=== PATIENT | male | born 1950 | race Caucasian/White ===

== ENCOUNTER 2016-11-08 09:56 | Outpatient (CLI) | payer MEDICARE, OTHER | END 2016-11-08 09:57 | disposition home or self-care (01) | DX: S92.512D Displaced fracture of proximal phalanx of left lesser toe(s), subsequent encounter for fracture with routine healing (principal); X58.XXXD Exposure to other specified factors, subsequent encounter ==

== ENCOUNTER 2016-12-14 15:22 | Outpatient (CLI) | payer MEDICARE, OTHER | END 2016-12-14 15:23 | disposition home or self-care (01) | DX: S83.222A Peripheral tear of medial meniscus, current injury, left knee, initial encounter (principal); M94.8X6 Other specified disorders of cartilage, lower leg; M25.462 Effusion, left knee; M65.9 Synovitis and tenosynovitis, unspecified ==

== ENCOUNTER 2016-12-23 10:51 | Outpatient (CLI) | payer MEDICARE, OTHER | END 2016-12-23 10:52 | disposition home or self-care (01) | DX: S92.515D Nondisplaced fracture of proximal phalanx of left lesser toe(s), subsequent encounter for fracture with routine healing (principal) ==

== ENCOUNTER 2016-12-25 08:00 | Outpatient (CLI) | payer MEDICARE, OTHER | END 2016-12-25 23:59 | DX: M25.50 Pain in unspecified joint (principal) ==

== ENCOUNTER 2017-01-21 10:26 | Outpatient (CLI) | payer MEDICARE, OTHER | END 2017-01-21 10:27 | disposition home or self-care (01) | DX: S92.512D Displaced fracture of proximal phalanx of left lesser toe(s), subsequent encounter for fracture with routine healing (principal) ==

== ENCOUNTER 2017-09-24 12:11 | Day surgery (SDC) | payer MEDICARE, OTHER ==
[2017-09-24] MEDS ORDERED: LACTATED RINGERS 1,000 ML IV ONE (12:22)
[2017-09-24] MEDS ORDERED: fentaNYL 100 MCG/2 ML VIAL IVP ONE (13:54)
[2017-09-24] MEDS ORDERED: MIDAZOLAM 2 MG/2 ML VIAL IVP ONE (13:54)
[2017-09-24 14:59] VITALS: BP 108/60
== END 2017-09-24 12:12 | disposition home or self-care (01) ==
LOC: SDS 12:11
PROVIDERS: ATTEND Internal Medicine
PROC: 0DBK8ZX Excision of Ascending Colon, Via Natural or Artificial Opening Endoscopic, Diagnostic (ICD-10-PCS; principal; 2017-09-24 13:30)
DX: D12.2 Benign neoplasm of ascending colon (principal); K64.8 Other hemorrhoids; E78.5 Hyperlipidemia, unspecified; I10 Essential (primary) hypertension
CPT/HCPCS: 45380; 88305; J7120

== ENCOUNTER 2017-10-04 14:50 | Emergency (ER) | payer MEDICARE, OTHER ==
--- NOTE | 2017-10-04 15:09 | ED Physician Documentation ---
PD HPI HEADACHE - Stated complaint Stated Complaint: QUIÑONES - Chief complaint Chief Complaint: General - History obtained from History obtained from: Patient - History of Present Illness Timing - onset: How many weeks ago (2) Timing - onset during: Light activity Timing - duration: Weeks (2) Timing - details: Gradual onset, Still present. No: Waxing and waning (fairly consistent headache without other symptoms.) Location: Back, Right Quality: Aching Associated symptoms: Nausea. 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 No: Possible carbon monoxide ( does use propane for furnace, and also wood stove, but no change in headache when away for a few days and without headache.), Recent illness Similar symptoms before: Has not had sx before Recently seen: Not recently seen Review of Systems Constitutional: denies: Fever, Chills Nose: denies: Rhinorrhea / runny nose, Congestion, Sinus pressure / pain Throat: denies: Sore throat Cardiac: denies: Chest pain / pressure, Palpitations Respiratory: denies: Dyspnea, Cough GI: reports: Nausea. denies: Vomiting, Diarrhea : denies: Dysuria, Frequency Skin: denies: Rash, Lesions Musculoskeletal: denies: Neck pain, Back pain Neurologic: denies: Focal weakness, Numbness, Near syncope PD PAST MEDICAL HISTORY - Past Medical History Cardiovascular: Hypertension Respiratory: None Endocrine/Autoimmune: None GI: None : Benign prostate hypertrophy, Kidney stones HEENT: None Musculoskeletal: Osteoarthritis, Chronic back pain Derm: Other - Past Surgical History Past Surgical History: Yes General: Colonoscopy Ortho: Shoulder arthroplasty HEENT: Tonsil/Adenoidectomy - Present Medications Home Medications: Ambulatory Orders Medication Instructions Recorded Confirmed Simvastatin [Zocor] 20 mg PO QPM 03/07/13 09/24/17 HYDROcod/ACETAM 5/325 [Vicodin 1 tab PO QPM 06/04/15 09/24/17 5/325] Naproxen [Naprosyn] 500 mg PO DAILY 06/04/15 09/24/17 Triamterene/Hydrochlorothiazid 1 tab PO DAILY 06/04/15 09/24/17 [Triamterene-Hctz 37.5-25 mg Tb] Alfuzosin HCl [Alfuzosin HCl ER] 10 mg PO DAILY 09/23/17 09/24/17 Dexamethasone [Decadron] 4 mg PO DAILY #7 tablet 10/04/17 Oxycodone HCl/Acetaminophen 1 each PO Q6H PRN #20 tablet 10/04/17 [Percocet 5-325 mg Tablet] - Allergies Allergies/Adverse Reactions: Allergies Allergy/AdvReac Type Severity Reaction Status Date / Time morphine AdvReac Severe bradycardia Verified 10/04/17 15:02 - Social History Does the pt smoke?: No Smoking Status: Never smoker Does the pt drink ETOH?: Yes Does the pt have substance abuse?: No - Immunizations Immunizations are current?: Yes Immunizations: TDAP >10years/unknown PD ED PE NORMAL - Vitals Vital signs reviewed: Yes - General General: Alert and oriented X 3, Well developed/nourished - HEENT HEENT: PERRL, EOMI (fundi appear normal), Ears normal, Pharynx benign - Neck Neck: Supple, no meningeal sign, No adenopathy - Cardiac Cardiac: RRR, No murmur - Respiratory Respiratory: Clear bilaterally - Derm Derm: Normal color, No rash - Extremities Extremities: No tenderness to palpate, Normal ROM s pain, No edema, No calf tenderness / cord - Neuro Neuro: Alert and oriented X 3, 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, No motor deficit, No sensory deficit, Normal speech Eye Opening: Spontaneous Motor: Obeys Commands Verbal: Oriented GCS Score: 15 - Psych Psych: Normal mood, Normal affect Results - Vitals Vitals: Vital Signs - 24 hr 10/04/17 10/04/17 15:00 17:24 Temperature 36.0 C L 36.7 C Heart Rate 63 51 L Respiratory 20 20 Rate Blood Pressure 133/79 H 126/72 O2 Saturation 98 100 Oxygen O2 Source Room air - Labs Labs: Laboratory Tests 10/04/17 10/04/17 10/04/17 16:22 16:22 16:22 WBC 6.6 RBC 5.13 Hgb 15.2 Hct 45.3 MCV 88.4 MCH 29.7 MCHC 33.6 RDW 12.7 Plt Count 194 MPV 8.4 Neut # 4.4 Lymph # 1.4 L [place] # 0.5 Eos # 0.2 Baso # 0.1 Absolute Nucleated RBC 0.00 Nucleated RBC % 0.0 ESR 2 Sodium 140 Potassium 3.6 Chloride 103 Carbon Dioxide 27 Anion Gap 10.0 BUN 21 H Creatinine 1.1 Estimated GFR (MDRD) 67 L Glucose 95 Calcium 9.8 Total Bilirubin 0.8 AST 25 ALT 19 Alkaline Phosphatase 60 Total Protein 7.8 Albumin 4.6 Globulin 3.2 Albumin/Globulin Ratio 1.4 Lipase 28 - Rads (name of study) head CT Radiology: Prelim report reviewed (no acute process) PD MEDICAL DECISION MAKING - ED course Complexity details: reviewed results (review of some literature shows headache as a side-effect of stopping Plaquenil. I could not find a particular treatment per se, just symptomatic and should remit.), considered differential, d/w patient Departure - Departure Disposition: 01 Home, Self Care Clinical Impression: Headache Qualifiers: Headache type: unspecified Headache chronicity pattern: acute headache Intractability: not intractable Qualified Code(s): R51 - Headache Condition: Stable Record reviewed to determine appropriate education?: Yes Instructions: ED Cephalgia Unspecified Follow-Up: Jarek Haji MD [Primary Care Provider] - Prescriptions: Dexamethasone [Decadron] 4 mg PO DAILY #7 tablet Oxycodone HCl/Acetaminophen [Percocet 5-325 mg Tablet] 1 each PO Q6H PRN #20 tablet PRN Reason: Pain Comments: Headache may be a tension headache or vascular such as migraine. It may be from the stoppage of the Plaquenil as that is associated with headache for some people as you have researched. I could not find a particular treatment per se for that. I presume an anti-inflammatory such as Decadron steroid daily for several days to week should be helpful for muscle tension as well as migraine and presume the withdrawal headache. Add Percocet if needed for pain. Continue your usual medications. Recheck if not improved over the next few days. Discharge Date/Time: 10/04/17 17:24
[2017-10-04] MEDS ORDERED: ACETAMINOPHEN 325 MG TABLET PO STA (15:41)
[2017-10-04] MEDS ORDERED: IBUPROFEN 600 MG TABLET PO STA (15:41)
[2017-10-04 16:29] LABS: BASOPHILS # (AUTO) 0.1 10^3/uL (0.0-0.1); BASOPHILS % (AUTO) 1.3 %; EOSINOPHILS # (AUTO) 0.2 10^3/uL (0.0-0.7); EOSINOPHILS % (AUTO) 2.7 %; HGB - HEMOGLOBIN 15.2 g/dL (14.0-18.0); LYMPHOCYTES # (AUTO) 1.4 10^3/uL (1.5-3.5); LYMPHOCYTES % (AUTO) 21.4 %; MEAN CORPUSCULAR HEMOGLOBIN 29.7 pg (27.0-31.0); MEAN CORPUSCULAR HGB CONC 33.6 g/dL (32.0-36.0); MEAN CORPUSCULAR VOLUME 88.4 fL (80.0-94.0); MEAN PLATELET VOLUME 8.4 fL (7.4-11.4); MONOCYTES # (AUTO) 0.5 10^3/uL (0.0-1.0); MONOCYTES % (AUTO) 7.5 %; NEUTROPHILS # (AUTO) 4.4 10^3/uL (1.5-6.6); NEUTROPHILS % (AUTO) 67.1 %; PLT - PLATELET COUNT 194 10^3/uL (130-450); RED BLOOD COUNT 5.13 10^6/uL (4.70-6.10); RED CELL DISTRIBUTION WIDTH 12.7 % (12.0-15.0); WHITE BLOOD COUNT 6.6 x10^3/uL (4.8-10.8)
--- NOTE | 2017-10-04 16:41 | CT Preliminary Report ---
Exam: CT HEAD W/O IMPRESSION: Normal head CT. [facility] SITE ID: [id number]
--- NOTE | 2017-10-04 16:41 | CT Report ---
EXAM: CT HEAD EXAM DATE: 10/04/2017 03:58 PM. CLINICAL HISTORY: Headache right side/frontal for 2 weeks. COMPARISON: None. TECHNIQUE: Multiaxial CT images were obtained from the foramen magnum to the vertex. Reformats: Coron al. IV contrast: None. In accordance with CT protocol optimization, one or more of the following dose reduction techniques w ere utilized for this exam: automated exposure control, adjustment of mA and/or KV based on patient s ize, or use of iterative reconstructive technique. FINDINGS: Parenchyma: No intraparenchymal hemorrhage. No evidence of mass, midline shift, or CT findings of inf arction. Gee-white differentiation is distinct. Extraaxial Spaces: Normal for age. No subdural or epidural collections identified. Ventricles: Normal in size and position. Sinuses and Orbits: Imaged paranasal sinuses, orbits, and mastoids show no significant abnormality. Bones: No evidence of fracture or calvarial defect. Other: None. IMPRESSION: Normal head CT. [facility] Referring Provider Line: [phone] SITE ID: [id number]
[2017-10-04 16:42] LABS: ALBUMIN 4.6 g/dL (3.2-5.5); ALBUMIN/GLOBULIN RATIO 1.4 (1.0-2.2); BILIRUBIN,TOTAL 0.8 mg/dL (0.2-1.0); CALCIUM 9.8 mg/dL (8.5-10.3); CREATININE 1.1 mg/dL (0.6-1.2); TOTAL PROTEIN 7.8 g/dL (6.7-8.2)
[2017-10-04] MEDS ORDERED: DEXAMETHASONE 10 MG/ML VIAL PO STA (17:12)
[2017-10-04 17:24] VITALS: BP 126/72
== END 2017-10-04 17:24 | disposition home or self-care (01) ==
LOC: ED 14:50
DX: R51 Headache (principal); M06.9 Rheumatoid arthritis, unspecified; I10 Essential (primary) hypertension; N40.0 Benign prostatic hyperplasia without lower urinary tract symptoms; M19.90 Unspecified osteoarthritis, unspecified site; Z87.442 Personal history of urinary calculi
CPT/HCPCS: 36415; 70450; 80053; 83690; 85025; 85651; 99283; A9270

== ENCOUNTER 2017-10-21 14:28 | Outpatient (CLI) | payer MEDICARE, OTHER ==
[2017-10-21] MEDS ORDERED: IOPAMIDOL-300 100 ML VIAL ONE (14:51)
--- NOTE | 2017-10-21 21:00 | CT Report ---
DATE OF SERVICE: 10/21/2017 CT BRAIN WITHOUT CONTRAST: 10/21/2017 CLINICAL INDICATION: Headache. COMPARISON: 10/04/[address] images of the brain were obtained without contrast. In accordance with CT protocol optimization, one or more of the following dose reduction techniques were utilized for this exam: Automated exposure control, adjustment of mA and/or KV based on patient size, or use of iterative reconstructive technique. The ventricles and sulci are normal in size, shape and configuration. The basilar cisterns are patent. There is no evidence of hemorrhage, mass effect, or midline shift. The visualized orbital contents and paranasal sinuses are unremarkable. The mastoid air cells are normally pneumatized. The middle ears are unremarkable. IMPRESSION: Normal CT of the brain without contrast. No significant interval change. TD: 10/21/2017 22:00
== END 2017-10-21 14:29 | disposition home or self-care (01) ==
LOC: DI 14:28
PROVIDERS: ATTEND Nurse Practitioner Family
DX: R51 Headache (principal)
CPT/HCPCS: 70450

== ENCOUNTER 2018-08-27 11:58 | Outpatient (CLI) | payer MEDICARE, OTHER ==
--- NOTE | 2018-08-28 15:30 | XRAY Report ---
Reason: RT HIP PAIN Procedure Date: 08/27/2018 Accession Number: [id number] / [id number] Procedure: XR - Hips 3-4V BILAT CPT Code: FULL RESULT: EXAM: BILATERAL HIP RADIOGRAPHY EXAM DATE: 08/27/2018 12:29 PM. CLINICAL HISTORY: Right hip pain. COMPARISON: None. TECHNIQUE: 2 views. FINDINGS: Bones: Normal. No fractures or bone lesion. Joints: Normal. No dislocation. The hip joint space is mildly narrowed on the left and moderately narrowed on the right. Soft Tissues: There is a 2.2 x 3.3 cm well-demarcated oval hyperdense mass which projects over the right hemisacrum. It is unclear whether this represents an intraosseous or extraosseous finding. 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 Hyperdense mass projecting over the right hemisacrum. Recommend CT pelvis to clarify. [facility]
== END 2018-08-27 11:59 | disposition home or self-care (01) ==
LOC: DI 11:58
PROVIDERS: ATTEND Nurse Practitioner Family
DX: M16.0 Bilateral primary osteoarthritis of hip (principal)
CPT/HCPCS: 73522

== ENCOUNTER 2018-09-01 08:06 | Outpatient (CLI) | payer MEDICARE, OTHER ==
--- NOTE | 2018-09-01 14:17 | CT Report ---
Reason: ABNORMAL FINDINGS ON DIAGNOSTIC IMAGING OF LIMBS Procedure Date: 09/01/2018 Accession Number: [id number] / [id number] Procedure: CT - Abdomen/Pelvis W/O CPT Code: FULL RESULT: EXAM: CT ABDOMEN AND PELVIS (CT KUB) EXAM DATE: 09/01/2018 08:38 AM. CLINICAL HISTORY: Abnormal findings on diagnostic imaging of limbs. COMPARISONS: None. TECHNIQUE: Routine axial helical CT imaging was performed through the abdomen and pelvis without IV contrast. Reconstructions: Coronal and sagittal. In accordance with CT protocol optimization, one or more of the following dose reduction techniques were utilized for this exam: automated exposure control, adjustment of mA and/or KV based on patient size, or use of iterative reconstructive technique. FINDINGS: Lung Bases: Partially imaged is a left hilar calcification measuring at least 2.3 x 1.0 cm. Right Kidney/Ureter: 1.1 cm right upper pole renal hypodensity, incompletely characterized. No calculi or hydronephrosis. Left Kidney/Ureter: No stones, hydronephrosis, or hydroureter. No perinephric fat stranding. Other Solid Organs: Noncontrast images of the solid organs are grossly unremarkable with the exception of evidence of prior granulomatous disease affecting the spleen. Gallbladder/Bile Ducts: Cholelithiasis. Peritoneal Cavity: No free fluid, free air or jacki adenopathy. Bowel is grossly unremarkable. Pelvic Organs: No bladder stones or wall thickening. Noncontrast images of the visualized pelvic organs are unremarkable. Vasculature: Unremarkable. Other: The previously seen 2.8 x 1.9 cm well-circumscribed hypodense mass is defined as intraosseous within the right iliac wing with benign features, large bone island. IMPRESSION: Benign bone island. Indeterminant hypodense right renal hypodensity. Recommend retroperitoneal ultrasound to determine whether this represents a cyst. [facility]
== END 2018-09-01 08:07 | disposition home or self-care (01) ==
LOC: DI 08:06
PROVIDERS: ATTEND Nurse Practitioner Family
DX: R93.6 Abnormal findings on diagnostic imaging of limbs (principal); N28.89 Other specified disorders of kidney and ureter
CPT/HCPCS: 74176

== ENCOUNTER 2018-09-23 12:58 | Outpatient (CLI) | payer MEDICARE, OTHER ==
--- NOTE | 2018-09-23 14:40 | Ultrasound Report ---
Reason: OTHER SPECIFIED DISORDERS OF KIDNEY AND URETER Procedure Date: 09/23/2018 Accession Number: [id number] / [id number] Procedure: US - Retroperitoneal CPT Code: FULL RESULT: EXAM: RENAL ULTRASOUND. EXAM DATE: 09/23/2018 01:13 PM. CLINICAL HISTORY: Other specified disorders of kidney and ureter. COMPARISON: None. TECHNIQUE: Real-time scanning was performed with static images obtained. FINDINGS: Right Kidney: 11.1 cm. The previously seen upper pole renal hypodensity is characterized as a cyst with thin septations and no demonstrable soft tissue component or blood flow by color Doppler which measures 0.9 x 0.9 x 0.9 cm. No hydronephrosis or renal calculi are seen. Left Kidney: 10.2 cm. Normal echotexture with no stones, contour-deforming masses, or hydronephrosis. Bladder: Bilateral jets seen. The prevoid bladder volume was 243 cc. The postvoid bladder volume was 38 cc. Other: None. IMPRESSION: Septated subcentimeter renal cyst without ultrasound evidence of blood flow or soft tissue component. While this is not characterized as a simple cyst, ultrasound appearance favors benignity. No further imaging follow-up is required at this time. [facility]
== END 2018-09-23 12:59 | disposition home or self-care (01) ==
LOC: DI 12:58
PROVIDERS: ATTEND Nurse Practitioner Family
DX: N28.1 Cyst of kidney, acquired (principal)
CPT/HCPCS: 76770

== ENCOUNTER 2019-06-03 10:40 | Outpatient (CLI) | payer MEDICARE, OTHER ==
--- NOTE | 2019-06-06 00:57 | XRAY Report ---
Reason: PAIN OF LEFT THIGH Procedure Date: 06/03/2019 Accession Number: [id number] / [id number] Procedure: XR - Lumbar Spine 2 View CPT Code: FULL RESULT: EXAM: LUMBOSACRAL SPINE RADIOGRAPHY EXAM DATE: 06/03/2019 10:58 AM. CLINICAL HISTORY: Pain of left thigh. COMPARISONS: ABDOMEN/PELVIS W/O 09/01/2018 8:25 AM. TECHNIQUE: 2 views. FINDINGS: Alignment: Mild levoscoliosis. No spondylolisthesis. Bones: Five [id number] lumbar vertebral bodies are present. No traumatic or destructive bone abnormality. Sclerotic bone island in the posterior right medial iliac bone. Disks: Advanced degenerative disk disease at L4-L5 and L5-S1. Sacroiliac Joints: Unremarkable. Soft Tissues: Normal. The visualized bowel gas pattern is normal. IMPRESSION: Advanced degenerative disk disease at L4-L5 and L5-S1. [facility]
== END 2019-06-03 10:41 | disposition home or self-care (01) ==
LOC: DI 10:40
PROVIDERS: ATTEND Nurse Practitioner Family
DX: M51.36 Other intervertebral disc degeneration, lumbar region (principal); M51.37 Other intervertebral disc degeneration, lumbosacral region
CPT/HCPCS: 72100

== ENCOUNTER 2019-07-06 12:10 | Outpatient (CLI) | payer MEDICARE, OTHER | END 2019-07-06 12:11 | disposition home or self-care (01) | LOC: DI 12:10 | PROVIDERS: ATTEND Orthopaedic Surgery | DX: Z53.9 Procedure and treatment not carried out, unspecified reason (principal) ==

== ENCOUNTER 2020-09-27 18:14 | Emergency (ER) | payer MEDICARE, OTHER ==
[2020-09-27 19:55] LABS: BILIRUBIN,URINE NEGATIVE (NEGATIVE); GLUCOSE, URINE (UA) NEGATIVE (NEGATIVE); KETONES,URINE (UA) NEGATIVE (NEGATIVE); LEUKOCYTE ESTERASE, URINE NEGATIVE (NEGATIVE); NITRITE,URINE NEGATIVE (NEGATIVE); OCCULT BLOOD,URINE TRACE-INTA (NEGATIVE); PH,URINE 5.5 PH (5.0-7.5); PROTEIN,URINE NEGATIVE (NEGATIVE); UROBILINOGEN,URINE 0.2 (NORMAL) E.U./dL (NORMAL)
[2020-09-27 19:56] LABS: BASOPHILS # (AUTO) 0.1 10^3/uL (0.0-0.1); EOSINOPHILS # (AUTO) 0.2 10^3/uL (0.0-0.7); EOSINOPHILS % (AUTO) 2.9 %; HCT - HEMATOCRIT 42.4 % (42.0-52.0); HGB - HEMOGLOBIN 14.3 g/dL (14.0-18.0); LYMPHOCYTES # (AUTO) 1.4 10^3/uL (1.5-3.5); LYMPHOCYTES % (AUTO) 23.5 %; MEAN CORPUSCULAR HGB CONC 33.7 g/dL (32.0-36.0); MEAN CORPUSCULAR VOLUME 88.9 fL (80.0-94.0); MONOCYTES # (AUTO) 0.4 10^3/uL (0.0-1.0); MONOCYTES % (AUTO) 6.4 %; NEUTROPHILS # (AUTO) 4.1 10^3/uL (1.5-6.6); PLT - PLATELET COUNT 209 10^3/uL (130-450); RED BLOOD COUNT 4.77 10^6/uL (4.70-6.10); RED CELL DISTRIBUTION WIDTH 12.1 % (12.0-15.0); WHITE BLOOD COUNT 6.1 x10^3/uL (4.8-10.8)
[2020-09-27 20:03] LABS: CLARITY,URINE CLEAR (CLEAR)
[2020-09-27 20:10] LABS: ALBUMIN 4.3 g/dL (3.2-5.5); ALBUMIN/GLOBULIN RATIO 1.4 (1.0-2.2); CALCIUM 9.4 mg/dL (8.5-10.3); CREATININE 1.1 mg/dL (0.6-1.2); POTASSIUM 3.9 mmol/L (3.5-5.0); TOTAL PROTEIN 7.4 g/dL (6.7-8.2)
[2020-09-27] MEDS ORDERED: KETOROLAC 60 MG/2 ML VIAL IM STA (20:30)
--- NOTE | 2020-09-27 21:18 | ED Physician Documentation ---
History of Present Illness - Stated complaint Stated Complaint: RIGHT SIDED PX - Chief complaint Chief Complaint: Abd Pain - History obtained from History obtained from: Patient - Additonal information Additional information: 69-year-old male presents the emergency department for evaluation of acute right low back pain. He reports that yesterday evening he was working on his vehicle. For prolonged period of time he was laying in an uncomfortable position over a tub. Since then he has had persistent pain in the low back. He has taken Vicodin at home with moderate relief of pain but over the last 24 hours it is worsened. No history of previous back surgery. No history of cancer IVDA. No saddle anesthesia. No bowel or bladder incontinence. Review of Systems Constitutional: reports: Reviewed and negative Eyes: reports: Reviewed and negative Ears: reports: Reviewed and negative Nose: reports: Reviewed and negative Throat: reports: Reviewed and negative Cardiac: reports: Reviewed and negative Respiratory: reports: Reviewed and negative GI: reports: Reviewed and negative : reports: Reviewed and negative Skin: reports: Reviewed and negative Musculoskeletal: reports: Back pain Neurologic: reports: Reviewed and negative PD PAST MEDICAL HISTORY - Past Medical History Past Medical History: Yes Cardiovascular: Hypertension Respiratory: None Endocrine/Autoimmune: None GI: None : Benign prostate hypertrophy, Kidney stones HEENT: None Musculoskeletal: Osteoarthritis, Chronic back pain Derm: Other - Past Surgical History Past Surgical History: Yes General: Colonoscopy Ortho: Shoulder arthroplasty HEENT: Tonsil/Adenoidectomy - Present Medications Home Medications: Ambulatory Orders Medication Instructions Recorded Confirmed Simvastatin [Zocor] 20 mg PO QPM 03/07/13 09/24/17 HYDROcod/ACETAM 5/325 [Vicodin 1 tab PO QPM 06/04/15 09/24/17 5/325] Naproxen [Naprosyn] 500 mg PO DAILY 06/04/15 09/24/17 Triamterene/Hydrochlorothiazid 1 tab PO DAILY 06/04/15 09/24/17 [Triamterene-Hctz 37.5-25 mg Tb] Alfuzosin HCl [Alfuzosin HCl ER] 10 mg PO DAILY 09/23/17 09/24/17 Oxycodone HCl/Acetaminophen 1 each PO Q6H PRN #20 tablet 10/04/17 [Percocet 5-325 mg Tablet] dexAMETHasone [Decadron] 4 mg PO DAILY #7 tablet 10/04/17 HYDROcodone/ACET 10/325 [[place] 10 1 each PO Q6H PRN #5 tablet 09/27/20 mg/325 mg] Methocarbamol [Robaxin-750] 750 mg PO BID #20 tablet 09/27/20 - Allergies Allergies/Adverse Reactions: Allergies Allergy/AdvReac Type Severity Reaction Status Date / Time morphine AdvReac Severe bradycardia Verified 09/27/20 18:38 - Social History Does the pt smoke?: No Smoking Status: Never smoker Does the pt drink ETOH?: Yes Does the pt have substance abuse?: No - Immunizations Immunizations are current?: Yes Immunizations: TDAP >10years/unknown - POLST Patient has POLST: No PD ED PE EXPANDED - General General: Alert, No acute distress, Well developed/nourished - Neck Neck: Supple w/out meningeal sx, No tenderness. No: Adenopathy - Cardiac Cardiac: Regular Rate, Regular Rhythm, Radial strong equal, Pedal strong equal - Respiratory Respiratory: Clear to ausultation ludy. No: Distress - Back Back: Soft tissue tenderness (right lower paraspinous tenderness. mild spasm appreciated. no midline tenderness. motor strength 5/5 BLW. no parathesias). No: Vertebral tenderness, CVA TTP right, CVA TTP left - Neuro Neuro: Alert and Oriented X 3, CNII-XII intact. No: Normal gait (mildly antalgic) - GCS Eye Opening: Spontaneous Motor: Obeys Commands Verbal: Oriented Total: 15 Results - Vitals Vitals: Vital Signs - 24 hr 09/27/20 18:27 Temperature 36.4 C L Heart Rate 55 L Respiratory 17 Rate Blood Pressure 168/83 H O2 Saturation 99 Oxygen O2 Source Room air - Labs Labs: Laboratory Tests 09/27/20 09/27/20 09/27/20 19:21 19:50 19:50 WBC 6.1 RBC 4.77 Hgb 14.3 Hct 42.4 MCV 88.9 MCH 30.0 MCHC 33.7 RDW 12.1 Plt Count 209 MPV 10.0 Neut # (Auto) 4.1 Lymph # (Auto) 1.4 L [place] # (Auto) 0.4 Eos # (Auto) 0.2 Baso # (Auto) 0.1 Absolute Nucleated RBC 0.00 Nucleated RBC % 0.0 Sodium 141 Potassium 3.9 Chloride 105 Carbon Dioxide 26 Anion Gap 10.0 BUN 18 Creatinine 1.1 Estimated GFR (MDRD) 67 L Glucose 122 H Calcium 9.4 Total Bilirubin 1.0 AST 24 ALT 19 Alkaline Phosphatase 66 Total Protein 7.4 Albumin 4.3 Globulin 3.1 Albumin/Globulin Ratio 1.4 Lipase 27 Urine Color YELLOW Urine Clarity CLEAR Urine pH 5.5 Ur Specific [place] >=1.030 H Urine Protein NEGATIVE Urine Glucose (UA) NEGATIVE Urine Ketones NEGATIVE Urine Occult Blood TRACE-INTA Urine Nitrite NEGATIVE Urine Bilirubin NEGATIVE Urine Urobilinogen 0.2 (NORMAL) Ur Leukocyte Esterase NEGATIVE Ur Microscopic Review NOT INDICATED Urine Culture Comments NOT INDICATED PD MEDICAL DECISION MAKING - ED course Complexity details: reviewed results, re-evaluated patient, considered differ ential, d/w patient ED course: 69-year-old male presents emergency department for evaluation of acute right low back pain sustained yesterday when he was working on his vehicle and laid in a prolonged period of time over a small hump where the buuteeq box was. He has palpable tenderness in the paraspinous region with some mild spasm appreciated. He was given Toradol here in the emergency department as he drove here. He had moderate relief of pain. He does have diclofenac at home for analgesia as well as a limited prescription of hydrocodone. I will recommend that he continue the diclofenac and I will also write a prescription for a small amount of methocarbamol. He has no saddle anesthesia or back pain red flags and the exam is otherwisereassuring return precautions discussed Departure - Departure Disposition: 01 Home, Self Care Clinical Impression: Right low back pain Qualifiers: Chronicity: acute Sciatica presence: without sciatica Qualified Code(s): M54.5 - Low back pain Condition: Stable Record reviewed to determine appropriate education?: Yes Instructions: ED Contusion Back Follow-Up: Jarek Haji MD [Primary Care Provider] - Prescriptions: HYDROcodone/ACET 10/325 [[place] 10 mg/325 mg] 1 each PO Q6H PRN #5 tablet PRN Reason: Pain Methocarbamol [Robaxin-750] 750 mg PO BID #20 tablet Comments: Will please continue to take the diclofenac at home. I would also recommend that you apply ice to the low back in the area where it is painful. I have written a prescription for a limited amount of methocarbamol as well as few additional doses of hydrocodone. If at any point you are having worsening pain numbness or tingling between your legs or inability to control your bowel or bladder please return to the ER
[2020-09-27 21:19] VITALS: BP 156/81
--- OUTSIDE RECORDS SUMMARY | 2020-10-04 00:53 | EXTERNAL MEDICAL SUMMARY RPT | Continuity of Care Document ---
:1950 Demographics Phone Unavailable Preferred Language Unknown Marital Status Unknown Judaism Affiliation Unknown Race Unknown Ethnic Group Unknown Author Organization [place] Address [address] [phone] Phone Care Team Providers Name Role Phone Haji Unavailable Unavailable Problems date description facility 2020-09-27 18:14 ESSENTIAL (PRIMARY) HYPERTENSION [facility] 2020-09-27 18:14 LOW BACK PAIN [facility] 2020-09-27 18:14 MUSCLE SPASM OF BACK [facility] [place] 2020-09-27 18:14 OVEREXERTION FROM PROLONGED STATIC [facility] OR [facility] 2020-09-27 18:14 ACTIVITY, OTHER SPECIFIED [facility] Allergies date description facility ADHESIVE \T\ TAPE [facility] CARVEDILOL [facility] NO KNOWN ENVIRONMENTAL ALLERGIES [facility] UNCODED NONSCREENABLE ALLERGEN [facility] PROCHLORPERAZINE [facility] CODEINE [facility] IBUPROFEN [facility] NAPROXEN [facility] PROMETHAZINE [facility] NO KNOWN ALLERGIES [facility] morphine [facility] Results Social History date description facility [id number]
== END 2020-09-27 21:31 | disposition home or self-care (01) ==
LOC: ED 18:14
DX: M54.5 Low back pain (principal); M62.830 Muscle spasm of back; X50.1XXA Overexertion from prolonged static or awkward postures, initial encounter; Y93.89 Activity, other specified; I10 Essential (primary) hypertension
CPT/HCPCS: 36415; 80053; 81001; 81003; 83690; 85025; 87086; 96372; 99284

== ENCOUNTER 2021-04-24 10:12 | Outpatient (CLI) | payer MEDICARE, OTHER ==
--- NOTE | 2021-04-24 14:57 | XRAY Report ---
PROCEDURE: Foot 3 View LT INDICATIONS: RECENT PX HIP JOINT, LEFT W/CHANGE IN SHAPE TECHNIQUE: 3 views of the foot were acquired. COMPARISON: 11/24/2016, 06/11/2016, 09/04/2015 FINDINGS: Bones: No fractures or dislocations. The previously seen second toe fracture has healed. No suspicio us bony lesions. A mild hallux valgus deformity is seen, with associated degenerative change of the first metatarsopha langeal joint. Milder degenerative changes are seen elsewhere. Soft tissues: No tibiotalar joint effusion. Achilles tendon appears normal. IMPRESSION: Mild hallux valgus deformity, with associated degenerative change. The previously seen second toe fracture has healed. Reviewed by: Adilson Man MD on 04/24/2021 1:56 PM [facility] Approved by: Adilson Man MD on 04/24/2021 1:56 PM [facility] Station ID: [id number]
== END 2021-04-24 10:13 | disposition home or self-care (01) ==
LOC: DI.S 10:12
PROVIDERS: ATTEND Podiatrist
DX: M20.12 Hallux valgus (acquired), left foot (principal); Z87.81 Personal history of (healed) traumatic fracture

== ENCOUNTER 2022-11-04 08:51 | Outpatient (CLI) | payer MEDICARE, OTHER ==
--- NOTE | 2022-11-04 10:17 | XRAY Report ---
PROCEDURE: Shoulder 2 View RT INDICATIONS: PAIN OF RIGHT SHOULDER JOINT TECHNIQUE: 3 views of the shoulder were acquired. COMPARISON: None. FINDINGS: Bones: There is prior right shoulder arthroplasty. Shoulder alignment is anatomic. No fractures or di slocations. No evidence of hardware loosening or failure. Moderate acromioclavicular joint osteoarth ritic changes are seen. No suspicious bony lesions. Visualized ribs appear intact. Soft tissues: No suspicious soft tissue calcifications. IMPRESSION: Prior right shoulder arthroplasty with anatomic shoulder alignment. No gross hardware lo osening or failure. No acute fracture or dislocation. Moderate right acromioclavicular joint osteoart hritis. Reviewed by: Daniel Hoover MD on 11/04/2022 10:15 AM [facility] Approved by: Daniel Hoover MD on 11/04/2022 10:15 AM PST Station ID: [id number]
== END 2022-11-04 08:52 | disposition home or self-care (01) ==
LOC: DI.S 08:51
PROVIDERS: ATTEND Nurse Practitioner Family
DX: M19.011 Primary osteoarthritis, right shoulder (principal); Z96.611 Presence of right artificial shoulder joint

== ENCOUNTER 2023-01-08 10:10 | Day surgery (SDC) | payer MEDICARE, OTHER ==
[2023-01-08] MEDS ORDERED: LACTATED RINGERS 1,000 ML IV ONE ×2 (10:18→12:53)
--- NOTE | 2023-01-08 12:03 | ANESTHESIA ---
Pre-Anesthesia VS, & Labs - Diagnosis screening - Procedure colonoscopy Vital Signs: Temp Pulse Resp BP Pulse Ox O2 Flow Rate 36.5 C 58 L 16 161/90 H 96 0 01/08/23 10:30 01/08/23 10:30 01/08/23 10:30 01/08/23 10:30 01/08/23 10:30 01/08/23 10:30 Height: 5 ft 10 in Weight (kg): 97 kg Body Mass Index: 30.7 BMI Classification: Obese - NPO >8 hours Home Medications and Allergies Home Medications: Ambulatory Orders Amlodipine Besylate [Norvasc] 1 tab PO DAILY 01/07/23 Diclofenac Sodium 75 mg PO DAILY 01/07/23 Losartan [Cozaar] 1 tab PO DAILY 01/07/23 Simvastatin [Zocor] 20 mg PO QPM 03/07/13 Alfuzosin HCl [Alfuzosin HCl ER] 10 mg PO DAILY 09/23/17 Amlodipine Besylate [Norvasc] 1 tab PO DAILY 01/07/23 Diclofenac Sodium 75 mg PO DAILY 01/07/23 Losartan [Cozaar] 1 tab PO DAILY 01/07/23 Allergies/Adverse Reactions: Allergies Allergy/AdvReac Type Severity Reaction Status Date / Time morphine AdvReac Severe bradycardia Verified 09/27/20 18:38 Anes History & Medical History - Anesthetic History Anesthesia Complications: reports: No previous complications - Medical History Cardiovascular: reports: Hypertension, High cholesterol Pulmonary: reports: Sleep apnea Gastrointestinal: reports: None Urinary: reports: Benign prostate hypertrophy, Kidney stones Musculoskeletal: reports: Osteoarthritis, Chronic back pain Endocrine/Autoimmune: reports: None Skin: reports: Other Smoking Status: Never smoker - Surgical History General: reports: Colonoscopy Eyes Ears Nose Throat (EENT): reports: Tonsil/Adenoidectomy Urologic: reports: Kidney stents, Ureterolithotomy (stones) Orthopedic: reports: Hip replacement, Shoulder arthroplasty Exam General: Alert, Oriented x3 Dental: WNL Mouth Opening: Greater than 4 Fingerbreadths Neck Mobility: Normal Mallampati classification: I Thyromental Distance: greater than 6 cm Respiratory: Lungs clear Cardiovascular: Regular rate, Normal S1, Normal S2 Plan Anesthesia Type: Total IV Consent for Procedure(s) Verified and Reviewed: Yes Code Status: Attempt Resuscitation ASA classification: 2-Mild systemic disease Is this case an emergency?: No
[2023-01-08] MEDS ORDERED: PROPOFOL 500 MG/50 ML 500 MG/50 ML VIAL ONE (12:10)
[2023-01-08] MEDS ORDERED: PROPOFOL 200 MG/20 ML VIAL IVP ONE (12:47)
--- NOTE | 2023-01-08 13:31 | ANESTHESIA POST OP EVALUATION ---
Anesthesia Post Eval - Post Anesthesia Eval Vitals: Last Vital Signs Temp 36.1 C L 01/08/23 13:13 Pulse 63 01/08/23 13:18 Resp 13 01/08/23 13:18 BP 128/94 H 01/08/23 13:18 Pulse Ox 97 01/08/23 13:18 O2 Flow Rate 0 01/08/23 10:30 CV Function Including HR & BP: Stable Pain Control: Satisfactory Nausea & Vomiting: Negative Mental Status: Baseline Respiratory Status: Airway Patent Hydration Status: Satisfactory Anesthesia Complications: None
[2023-01-08 13:38] VITALS: BP 145/88
== END 2023-01-08 10:11 | disposition home or self-care (01) ==
LOC: SDS 10:10
PROVIDERS: ATTEND Surgery
DX: Z12.11 Encounter for screening for malignant neoplasm of colon (principal); K64.8 Other hemorrhoids; D17.79 Benign lipomatous neoplasm of other sites; G47.30 Sleep apnea, unspecified; N40.0 Benign prostatic hyperplasia without lower urinary tract symptoms; E66.9 Obesity, unspecified; Z86.010 Personal history of colon polyps; Z68.30 Body mass index [BMI] 30.0-30.9, adult
CPT/HCPCS: G0105; J7120

== ENCOUNTER 2023-05-06 09:19 | Outpatient (CLI) | payer MEDICARE, OTHER ==
[2023-05-06 15:19] LABS: BASOPHILS # (AUTO) 0.1 10^3/uL (0.0-0.1); BASOPHILS % (AUTO) 0.9 %; EOSINOPHILS # (AUTO) 0.3 10^3/uL (0.0-0.7); EOSINOPHILS % (AUTO) 5.2 %; HCT - HEMATOCRIT 46.8 % (42.0-52.0); LYMPHOCYTES # (AUTO) 1.7 10^3/uL (1.5-3.5); LYMPHOCYTES % (AUTO) 25.3 %; MEAN CORPUSCULAR HEMOGLOBIN 29.7 pg (27.0-31.0); MEAN CORPUSCULAR HGB CONC 32.1 g/dL (32.0-36.0); MEAN CORPUSCULAR VOLUME 92.7 fL (80.0-94.0); MEAN PLATELET VOLUME 11.1 fL (7.4-11.4); MONOCYTES # (AUTO) 0.5 10^3/uL (0.0-1.0); MONOCYTES % (AUTO) 7.9 %; NEUTROPHILS % (AUTO) 60.4 %; PLT - PLATELET COUNT 225 10^3/uL (130-450); RED BLOOD COUNT 5.05 10^6/uL (4.70-6.10); RED CELL DISTRIBUTION WIDTH 12.6 % (12.0-15.0); WHITE BLOOD COUNT 6.6 x10^3/uL (4.8-10.8)
[2023-05-06 15:46] LABS: ALBUMIN 4.4 g/dL (3.2-5.5); ALBUMIN/GLOBULIN RATIO 1.6 (1.0-2.2); ALKALINE PHOSPHATASE 63 IU/L (42-121); ALT ALANINE AMINOTRANSFERASE 16 IU/L (10-60); AST ASPARTATE AMINOTRANSFERASE 21 IU/L (10-42); BILIRUBIN,TOTAL 0.7 mg/dL (0.2-1.0); BUN - BLOOD UREA NITROGEN 15 mg/dL (6-20); CALCIUM 9.6 mg/dL (8.5-10.3); CARBON DIOXIDE - CO2 26 mmol/L (21-32); CHLORIDE 109 mmol/L (101-111); CHOL/HDL RATIO 3.4 (<5.0); CHOLESTEROL 182 mg/dL; CREATININE 1.1 mg/dL (0.6-1.3); GFR - MDRD 66 (>89); GLUCOSE 101 mg/dL (74-104); HDL CHOLESTEROL 53 mg/dL; LDL CHOLESTEROL,CALCULATED 102 mg/dL; LDL/HDL RATIO 1.9 (<3.6); POTASSIUM 4.1 mmol/L (3.5-4.5); SODIUM 140 mmol/L (135-145); TOTAL PROTEIN 7.2 g/dL (6.4-8.9); TRIGLYCERIDES 133 mg/dL (48-352); VLDL CHOLESTEROL 27 mg/dL
[2023-05-06 15:49] LABS: THYROID STIMULATING HORMONE 2.01 uIU/mL (0.34-5.60)
== END 2023-05-06 09:20 | disposition home or self-care (01) ==
LOC: LAB.S 09:19
PROVIDERS: ATTEND Nurse Practitioner Family
DX: I10 Essential (primary) hypertension (principal); E78.5 Hyperlipidemia, unspecified; N40.1 Benign prostatic hyperplasia with lower urinary tract symptoms
CPT/HCPCS: 36415; 80053; 80061; 83721; 84153; 84154; 84443; 85025

== ENCOUNTER 2023-09-29 12:19 | Outpatient (CLI) | payer MEDICARE, OTHER | END 2023-09-29 23:59 | disposition critical access hospital (66) | LOC: EMS 12:19 | DX: H54.61 Unqualified visual loss, right eye, normal vision left eye (principal); R20.0 Anesthesia of skin; R47.1 Dysarthria and anarthria; R42 Dizziness and giddiness; I10 Essential (primary) hypertension | CPT/HCPCS: A0425; A0429 ==

== ENCOUNTER 2023-09-29 12:54 | Inpatient (IN) | payer MEDICARE, OTHER ==
--- NOTE | 2023-09-29 13:08 | ED Physician Documentation ---
PD HPI FOCAL NEURO - Stated complaint Stated Complaint: CODE STROKE - History obtained from History obtained from: Patient - Additional information Additional information: 72-year-old gentleman with history of hypertension and hyperlipidemia. He was in his normal state of health eating lunch today when he developed dizziness and weakness and was listing to the side. Then he felt like his right eye was everting. He felt like a "life draining out of him." This lasted for about 10 minutes. He is back to normal now. There is no associated headache or chest pain. Of note he is scheduled for shoulder replacement at [facility] in 2 days. PD PAST MEDICAL HISTORY - Past Medical History Cardiovascular: Hypertension, High cholesterol Respiratory: Sleep apnea Endocrine/Autoimmune: None GI: None : Benign prostate hypertrophy, Kidney stones HEENT: None Musculoskeletal: Osteoarthritis, Chronic back pain Derm: Other - Past Surgical History Past Surgical History: Yes General: Colonoscopy Ortho: Hip replacement, Shoulder arthroplasty HEENT: Tonsil/Adenoidectomy - Present Medications Home Medications: Ambulatory Orders Medication Instructions Recorded Confirmed Simvastatin [Zocor] 20 mg PO QPM 03/07/13 01/07/23 Alfuzosin HCl [Alfuzosin HCl ER] 10 mg PO DAILY 09/23/17 09/29/23 HYDROcodone/ACET 10/325 [[place] 10 1 each PO Q6H PRN #5 tablet 09/27/20 09/29/23 mg/325 mg] Amlodipine Besylate [Norvasc] 1 tab PO DAILY 01/07/23 09/29/23 Diclofenac Sodium 75 mg PO DAILY 01/07/23 09/29/23 Losartan [Cozaar] 1 tab PO DAILY 01/07/23 09/29/23 Ezetimibe/Rosuvastatin Calcium 20 mg PO DAILY 09/29/23 09/29/23 [Rosuvastatin-Ezetimibe 20-10Mg] - Allergies Allergies/Adverse Reactions: Allergies Allergy/AdvReac Type Severity Reaction Status Date / Time morphine AdvReac Severe bradycardia Verified 09/29/23 13:02 - Social History Does the pt smoke?: No Smoking Status: Never smoker Does the pt drink ETOH?: Yes Does the pt have substance abuse?: No - Immunizations Immunizations are current?: Yes Immunizations: TDAP >10years/unknown - POLST Patient has POLST: No PD ED PE NORMAL - Vitals Vital signs reviewed: Yes - General General: Alert and oriented X 3, No acute distress - HEENT HEENT: PERRL, EOMI - Neck Neck: Supple, no meningeal sign, No bony TTP, No bruit - Cardiac Cardiac: RRR, No murmur - Respiratory Respiratory: No respiratory distress, Clear bilaterally - Abdomen Abdomen: Non tender - Derm Derm: Normal color, Warm and dry - Extremities Extremities: No edema, No calf tenderness / cord, Other (Difficulty with motion of the left shoulder but this is not new and related to pain not weakness.) - Neuro Neuro: Alert and oriented X 3, Normal speech Eye Opening: Spontaneous Motor: Obeys Commands Verbal: Oriented GCS Score: 15 NIHSS - Time Time: 13:02 - Level of Consciousness Level of consciousness: (0) Alert, Keenly responsive LOC Questions: (0) Answers both Q's correct LOC Commands: (0) Performs both correctly - Gaze Best Gaze: (0) Normal - Visual Visual: (0) No loss - Facial Palsy Facial Palsy: (0) Normal, symmetrical movement - Motor Arms (both separate) Motor Arm (right): (0) No drift Motor Arm (left): (0) No drift - Motor Legs (both separate) Motor Leg (right): (0) No drift Motor Leg (left): (0) No drift - Limb Ataxia Limb Ataxia: (0) Absent - Sensory Sensory: (0) Normal - Best Language Best Language: (0) No aphasia - Dysarthria Dysarthria: (0) Normal - Extinction and Inattention (formally neg Extinction and inattention: (0) No abnormality - Total Score/Results Total Score/Result: 0 Results - Vitals Vitals: Vital Signs - 24 hr 09/29/23 09/29/23 09/29/23 13:02 13:07 14:07 Temperature 36.8 C 36.8 C Heart Rate 65 65 56 L Respiratory 18 18 14 Rate Blood Pressure 162/105 H 162/105 H 178/100 H O2 Saturation 100 100 98 09/29/23 09/29/23 09/29/23 14:30 15:00 15:30 Temperature 36.8 C Heart Rate 58 L 51 L 53 L Respiratory 15 18 13 Rate Blood Pressure 169/94 H 157/94 H 157/94 H O2 Saturation 98 100 97 09/29/23 09/29/23 16:00 16:30 Temperature Heart Rate 55 L 70 Respiratory 10 L 13 Rate Blood Pressure 168/99 H O2 Saturation 99 99 Oxygen O2 Source Room air - EKG (time done) 1337 EKG releavant findings:: EKG personally interpreted by author of this note. Relevant findings are: Rate: Rate (enter#) (55) Rhythm: NSR (With multiform PVCs) [place]: LAD Intervals: Normal IN QRS: Normal Ischemia: Normal ST segments - Labs Labs: Laboratory Tests 09/29/23 09/29/23 09/29/23 13:05 13:05 13:05 WBC 6.6 RBC 5.15 Hgb 15.2 Hct 46.7 MCV 90.7 MCH 29.5 MCHC 32.5 RDW 12.3 Plt Count 189 MPV 10.2 Neut # (Auto) 4.5 Lymph # (Auto) 1.4 L [place] # (Auto) 0.4 Eos # (Auto) 0.2 Baso # (Auto) 0.1 Absolute Nucleated RBC 0.00 Nucleated RBC % 0.0 PT 11.8 INR 1.1 Sodium 141 Potassium 3.9 Chloride 108 Carbon Dioxide 26 Anion Gap 7.0 BUN 16 Creatinine 1.0 Estimated GFR (MDRD) 74 L Glucose 107 H Calcium 9.6 Magnesium Total Bilirubin 0.9 AST 20 ALT 17 Alkaline Phosphatase 69 Troponin I High Sens Total Protein 7.3 Albumin 4.6 Globulin 2.7 Albumin/Globulin Ratio 1.7 Lipase 34 09/29/23 13:05 WBC RBC Hgb Hct MCV MCH MCHC RDW Plt Count MPV Neut # (Auto) Lymph # (Auto) [place] # (Auto) Eos # (Auto) Baso # (Auto) Absolute Nucleated RBC Nucleated RBC % PT INR Sodium Potassium Chloride Carbon Dioxide Anion Gap BUN Creatinine Estimated GFR (MDRD) Glucose Calcium Magnesium 1.9 Total Bilirubin AST ALT Alkaline Phosphatase Troponin I High Sens 17.6 Total Protein Albumin Globulin Albumin/Globulin Ratio Lipase - Rads (name of study) CT of the head without contrast is unremarkable Relevant Findings:: Final report received, EMP independent interpretation of test CT angiography of the head and neck were negative except for suboptimal evaluation of the origin of the left vertebral. 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 His description is a little different with transient diplopia and more weakness. He was noted to have ectopy prior to arrival. So differential now would also include TIA but also potentially a heart rhythm issue with low flow state. On the monitor here he did have very frequent multifocal PVCs including some R on T PVCs and very short runs of V. tach. CT and CT angiography were negative as were labs including CBC, CMP, magnesium, troponin. I discussed the case by phone given the ectopy with Drs. Bautista in [place] who recommended overnight obs to make sure he was not having more malignant arrhythmias with echocardiogram. Discussed with Dr. Kennedy, our hospitalist at 4:04 PM. Departure - Departure Disposition: ED Place in Observation Clinical Impression: Near syncope, Ventricular ectopy Condition: Stable Discharge Date/Time: 09/29/23 18:20
[2023-09-29 13:16] LABS: BASOPHILS # (AUTO) 0.1 10^3/uL (0.0-0.1); BASOPHILS % (AUTO) 0.8 %; EOSINOPHILS # (AUTO) 0.2 10^3/uL (0.0-0.7); EOSINOPHILS % (AUTO) 3.2 %; HCT - HEMATOCRIT 46.7 % (42.0-52.0); HGB - HEMOGLOBIN 15.2 g/dL (14.0-18.0); LYMPHOCYTES # (AUTO) 1.4 10^3/uL (1.5-3.5); LYMPHOCYTES % (AUTO) 21.1 %; MEAN CORPUSCULAR HEMOGLOBIN 29.5 pg (27.0-31.0); MEAN CORPUSCULAR HGB CONC 32.5 g/dL (32.0-36.0); MEAN CORPUSCULAR VOLUME 90.7 fL (80.0-94.0); MEAN PLATELET VOLUME 10.2 fL (7.4-11.4); MONOCYTES # (AUTO) 0.4 10^3/uL (0.0-1.0); MONOCYTES % (AUTO) 5.9 %; NEUTROPHILS # (AUTO) 4.5 10^3/uL (1.5-6.6); NEUTROPHILS % (AUTO) 68.8 %; PLT - PLATELET COUNT 189 10^3/uL (130-450); RED BLOOD COUNT 5.15 10^6/uL (4.70-6.10); RED CELL DISTRIBUTION WIDTH 12.3 % (12.0-15.0); WHITE BLOOD COUNT 6.6 x10^3/uL (4.8-10.8)
[2023-09-29 13:27] LABS: ALBUMIN 4.6 g/dL (3.2-5.5); ALBUMIN/GLOBULIN RATIO 1.7 (1.0-2.2); BILIRUBIN,TOTAL 0.9 mg/dL (0.2-1.0); CALCIUM 9.6 mg/dL (8.5-10.3); INR 1.1 (0.8-1.2); POTASSIUM 3.9 mmol/L (3.5-4.5); PT - PROTHROMBIN TIME 11.8 secs (9.9-12.6); TOTAL PROTEIN 7.3 g/dL (6.4-8.9)
--- NOTE | 2023-09-29 13:43 | CT Report ---
PROCEDURE: Head W/O Stroke Protocol INDICATIONS: Neuro deficit, acute, stroke suspected TECHNIQUE: Noncontrast 4.5 mm thick angled axial sections acquired from the foramen magnum to the vertex, with c oronal reformats. For radiation dose reduction, the following was used: automated exposure control, adjustment of mA and/or kV according to patient size. COMPARISON: None. FINDINGS: Image quality: Excellent. CSF spaces: Basal cisterns are patent. No extra-axial fluid collections. Ventricles are normal in size and shape. Brain: No midline shift. No intracranial masses or hemorrhage. Gee-white matter interface is norm al. Skull and face: Calvarium and visualized facial bones are intact, without suspicious lesions. Sinuses: Visualized sinuses and mastoids are clear. IMPRESSION: No acute intracranial pathology Findings were discussed with ordering provider on 09/29/2023 at 1:42 PM. This study fulfills neurological imaging criteria for inclusion or exclusion of acute stroke therapie s based on available published neurological imaging guidelines. Reviewed by: Isaac Lentz MD on 09/29/2023 1:42 PM PST Approved by: Isaac Lentz MD on 09/29/2023 1:42 PM PST Station ID: [id number]
--- NOTE | 2023-09-29 14:06 | CT Report ---
PROCEDURE: Angio Head/Neck INDICATIONS: CVA sx TECHNIQUE: PROCEDURE: Angio Head/Neck INDICATIONS: CVA sx TECHNIQUE: After the administration of intravenous contrast, 1 mm thick sections acquired from the aortic arch t hrough the [place] of [place]. 3-dimensional aqyqxaq-ndgusaytr-cgvubjhwzp (MIP) and/or volume renderin g reformats were acquired of the central intracranial vasculature and neck separately. For radiation dose reduction, the following was used: automated exposure control, adjustment of mA and/or kV acco rding to patient size. CONTRAST: Iodinated intravenous contrast COMPARISON: None. FINDINGS: Image quality: Degraded by technical factors, metallic beam hardening artifact. HEAD CT: CSF Spaces: Basal cisterns are patent. No extra-axial fluid collections. Ventricles are normal in size and shape. Brain: The brain is within normal limits for age and scanning technique. Skull and face: Calvarium and visualized facial bones appear intact, without suspicious lesions. Sinuses: Visualized sinuses and mastoids are clear. HEAD CT ANGIOGRAPHY: Anterior circulation: Mild calcific plaque causes mild diffuse stenosis of the cavernous segments of the internal carotid arteries bilaterally. The flow within the paired anterior cerebral arteries is n ormal and symmetric. The flow within the middle cerebral arteries is normal and symmetric. The ante rior communicating artery is seen. No aneurysms are seen. Posterior circulation: Visualized portions of the vertebral arteries demonstrate normal caliber, robson ar. There is a moderate focal stenosis within the mid basilar artery. Flow within the posterior cereb ral arteries is normal and symmetric. No aneurysms are seen. NECK CT ANGIOGRAPHY: Carotid system: The great vessels demonstrate a conventional anatomy as they arise from the aortic a rch. The origins of the common carotid arteries appear patent. The common carotid arteries demonstr ate normal caliber and courses. The bifurcation regions are both widely patent. There is roughly 10% calcific origin stenosis of the bilateral internal carotid artery origins. Posterior circulation: Ri ght vertebral artery origin is patent. Left vertebral artery origin is not well seen secondary to art ifact. Mild multifocal bilateral mid and distal vertebral artery stenoses are present. They join to f orm a normal appearing basilar artery. Soft tissues: Visualized neck soft tissues demonstrate no suspicious abnormalities. Bones: No suspicious bony lesions. Visualized cervical spine appears normally aligned. IMPRESSION: 1. No acute process involving the arterial tree of the head and neck. 2. Bilateral anterior and posterior circulation stenoses. 3. Suboptimal evaluation of the left vertebral artery origin, which could be further assessed with Do ppler or MR angiography, if clinically indicated. The estimate of stenosis included in the report of the imaging study was calculated using the NASCET method Reviewed by: Ary Che MD on 09/29/2023 2:05 PM PST Approved by: Ary Che MD on 09/29/2023 2:05 PM [facility] Station ID: [id number]
[2023-09-29 14:13] LABS: MAGNESIUM 1.9 mg/dL (1.7-2.3)
[2023-09-29 14:20] LABS: TROPONIN I HIGH SENSITIVITY 17.6 ng/L (2.3-19.7)
[2023-09-29] MEDS ORDERED: iohexoL-300 100 ML VIAL IVP ONE (14:33)
[2023-09-29] MEDS ORDERED: SODIUM CHLORIDE FLUSH 0.9% 10 ML SYRINGE IVP PRN (17:04)
--- NOTE | 2023-09-29 17:17 | HISTORY & PHYSICAL EXAMINATION ---
History of Present Illness - Admitted From Admitted From:: Emergency room - History Obtained From History obtained from: Patient - History of Present Illness HPI Comment/Other: Will Mares is a 72-year-old man who presented to the emergency room after a near syncopal episode at home.Patient reports that around noon time he developed weakness and dizziness and he felt like his eyes were going in opposite directions. He reports this lasted for approximately 10 minutes. EMS service was called and by the time they arrived it was over with. He also reports that he had a similar episode several months ago but this episode only lasted for seconds. He reports he is scheduled for a shoulder replacement in 2 days. History - Past Medical History Cardiovascular: reports: Hypertension, High cholesterol Respiratory: reports: Sleep apnea Endocrine/Autoimmune: reports: None GI: reports: None : reports: Benign prostate hypertrophy, Kidney stones HEENT: reports: None Musculoskeletal: reports: Osteoarthritis, Chronic back pain Derm: reports: Other MRSA Hx?: No - Past Surgical History General: reports: Colonoscopy Ortho: reports: Hip replacement, Shoulder arthroplasty HEENT: reports: Tonsil/Adenoidectomy - Family & Social History Living arrangement: At home - POLST Patient has POLST: No Meds/Allgy - Home Medications Home Medications: Ambulatory Orders Medication Instructions Recorded Confirmed Simvastatin [Zocor] 20 mg PO QPM 03/07/13 01/07/23 Alfuzosin HCl [Alfuzosin HCl ER] 10 mg PO DAILY 09/23/17 09/29/23 HYDROcodone/ACET 10/325 [[place] 10 1 each PO Q6H PRN #5 tablet 09/27/20 09/29/23 mg/325 mg] Amlodipine Besylate [Norvasc] 1 tab PO DAILY 01/07/23 09/29/23 Diclofenac Sodium 75 mg PO DAILY 01/07/23 09/29/23 Losartan [Cozaar] 1 tab PO DAILY 01/07/23 09/29/23 Ezetimibe/Rosuvastatin Calcium 20 mg PO DAILY 09/29/23 09/29/23 [Rosuvastatin-Ezetimibe 20-10Mg] - Allergies Allergies/Adverse Reactions: Allergies Allergy/AdvReac Type Severity Reaction Status Date / Time morphine AdvReac Severe bradycardia Verified 09/29/23 13:02 Exam - Vital Signs Vital Signs: Vital Signs x48h Temp Pulse Resp BP Pulse Ox 09/29/23 16:30 70 13 168/99 H 99 09/29/23 16:00 55 L 10 L 99 09/29/23 15:30 53 L 13 157/94 H 97 09/29/23 15:00 51 L 18 157/94 H 100 09/29/23 14:30 36.8 C 58 L 15 169/94 H 98 09/29/23 14:07 56 L 14 178/100 H 98 09/29/23 13:07 36.8 C 65 18 162/105 H 100 09/29/23 13:02 36.8 C 65 18 162/105 H 100 - Physical Exam General Appearance: positive: No acute distress, Mild distress, Moderate distress Eyes Bilateral: positive: Normal inspection, PERRL, No lid inflammation ENT: positive: ENT inspection nml Neck: positive: Nml inspection, Thyroid nml, No JVD, Trachea midline Respiratory: positive: Chest non-tender, No respiratory distress, Breath sounds nml Cardiovascular: positive: Regular rate & rhythm, No murmur Abdomen: positive: Non-tender, No organomegaly, Nml bowel sounds Extremities: positive: Non-tender Neurologic/Psychiatric: positive: Oriented x3, CN's nml (2-12) Conclusion/Plan - Problem List (1) Near syncope Conclusion/Plan: CT angiography of the head and neck revealed no significant pathology.CT scan of the brain also did not reveal any significant pathology Patient will be admitted to observation and placed on telemetry. Plan is to obtain an echocardiogram tomorrow. He will need to be risk stratified for his upcoming shoulder surgery. - Lab Results Fish Bones: 09/29/23 13:05 09/29/23 13:05
[2023-09-29] MEDS: HYDROcod/ACETAM 5/325 MG TABLET PO PRN (21:49)
[2023-09-30] MEDS: SODIUM CHLORIDE FLUSH 0.9% 10 ML SYRINGE IVP SCH ×3 (01:23→17:46)
[2023-09-30] MEDS: HYDROcod/ACETAM 5/325 MG TABLET PO PRN ×2 (03:49→20:15)
[2023-09-30 05:51] LABS: CALCIUM 9.3 mg/dL (8.5-10.3); MAGNESIUM 1.8 mg/dL (1.7-2.3); PHOSPHORUS 3.6 mg/dL (2.5-5.0); POTASSIUM 3.8 mmol/L (3.5-4.5)
[2023-09-30] MEDS: LOSARTAN 50 MG TABLET PO SCH (08:38)
[2023-09-30] MEDS: amLODIPine 5 MG TABLET PO SCH (08:39)
[2023-09-30] MEDS: DICLOFENAC SODIUM DR 75 MG TABLET PO SCH (08:39)
[2023-09-30] MEDS: ALFUZOSIN HCL 10 MG PO SCH (08:55)
[2023-09-30] MEDS: [UNRECOGNIZED DRUG - OTHER] PO SCH (08:55)
--- NOTE | 2023-09-30 16:59 | PROVIDER PROGRESS NOTE ---
Assessment/Plan - Problem List (1) Syncope Assessment/Plan: Etiology is still not clear. However telemetry shows marked bradycardia, HR down to 40. I suspect he had an episode of severe bradycardia at home that lasted for a prolonged time. Awaiting an Echocardiogram to be done. We do have an a/c technician available today but the tech did not get to him on her schedule today. 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 Telem shows HRs down to 40 in sinus rhythm. Plan: Remain on telem Avoid any HR-slowing meds I will check his TSH for Hypothyroidism (3) HTN (hypertension) Assessment/Plan: BP mildly elevated here Plan: Cont his usual home BP meds, I checked them and none seem to be able to cause bradycardia - Current Meds Current Meds: Current Medications Generic Name Dose Route Start Last Admin Trade Name Freq PRN Reason Stop Dose Admin Hydrocodone Bitart/Acetaminophen 2 tab 09/29/23 21:27 09/30/23 03:49 Hydrocod/Acetam 5/325 Mg Tablet PO 2 tab Q6HR PRN Administration Moderate Pain (Level 4-6) Amlodipine Besylate 2.5 mg 09/30/23 09:00 09/30/23 08:39 Amlodipine 5 Mg Tablet PO 2.5 mg DAILY CHELSIE Administration Diclofenac Sodium 75 mg 09/30/23 09:00 09/30/23 08:[address] 75 Mg Tablet PO 75 mg DAILY CHELSIE Administration Losartan Potassium 50 mg 09/30/23 09:00 09/30/23 08:38 Losartan 50 Mg Tablet PO 50 mg DAILY CHELSIE Administration Patient Own Med ( 1 each 09/30/23 09:00 09/30/23 08:55 Alfuzosin Hcl Er 10 PO Not Given Mg) DAILY [facility] Patient Own Med ( 1 each 09/30/23 09:00 09/30/23 08:55 Rosuvastatin- PO Not Given Ezetimibe 20-10mg) DAILY [facility] Sodium Chloride 10 ml 09/30/23 01:00 09/30/23 08:55 Sodium Chloride Flush 0.9% 10 Ml Syringe IVP 10 ml 0100,0900,1700 [facility] Administration - Lab Result Fish Bone Diagrams: 09/29/23 13:05 10/01/23 04:59 - Additional Planning My Orders: My Active Orders 09/30/23 07:56 Echo Transthoracic Complete [ECHO] Routine 09/30/23 07:57 Orthostatic [Vital Signs - Orthostatic] [RC] QSHIFT 09/30/23 16:48 Admit \ Transfer \ Status [RC] .ONCE Subjective - Subjective Patient Reports: Resting Comfortably, No Complaints Objective Vital Signs: Vital Signs - 24 hr 09/29/23 09/29/23 09/29/23 18:30 20:00 21:47 Temperature 36.6 C 36.8 C Heart Rate [ 57 L 52 L 53 L Brachial] Respiratory 20 16 Rate Blood Pressure 169/94 H 162/86 H 158/86 H [Right Brachial artery] O2 Saturation 97 97 09/30/23 09/30/23 09/30/23 01:00 05:30 07:48 Temperature 37.0 C 36.6 C 36.5 C Heart Rate [ 60 53 L 45 L Brachial] Respiratory 16 16 14 Rate Blood Pressure 136/88 H 149/86 H 143/84 H [Right Brachial artery] O2 Saturation 96 96 96 09/30/23 09/30/23 12:04 15:57 Temperature 36.6 C 37.1 C Heart Rate [ 51 L 52 L Brachial] Respiratory 16 18 Rate Blood Pressure 143/84 H 152/83 H [Right Brachial artery] O2 Saturation 94 93 Oxygen O2 Source Room air I&O (Last 24 Hrs): Intake and Output Totals x24h 09/28/23 09/29/23 09/30/23 23:59 23:59 23:59 Intake Total 600 Balance 600 General: Alert, Oriented x3, No acute distress HEENT: EOMI, Mucous membr. moist/pink Neck: Supple, No JVD Neuro: Alert, Non Focal Cardiovascular: Regular rate, No murmurs Respiratory: No respiratory distress, Breath sounds nml Abdomen: Normal bowel sounds, Soft, No tenderness Extremities: No clubbing, No edema, No tenderness/swelling - Results Results: Laboratory Results WBC 6.6 x10^3/uL (4.8-10.8) 09/29/23 13:05 RBC 5.15 10^6/uL (4.70-6.10) 09/29/23 13:05 Hgb 15.2 g/dL (14.0-18.0) 09/29/23 13:05 Hct 46.7 % (42.0-52.0) 09/29/23 13:05 MCV 90.7 fL (80.0-94.0) 09/29/23 13:05 MCH 29.5 pg (27.0-31.0) 09/29/23 13:05 MCHC 32.5 g/dL (32.0-36.0) 09/29/23 13:05 RDW 12.3 % (12.0-15.0) 09/29/23 13:05 Plt Count 189 10^3/uL (130-450) 09/29/23 13:05 MPV 10.2 fL (7.4-11.4) 09/29/23 13:05 Neut # (Auto) 4.5 10^3/uL (1.5-6.6) 09/29/23 13:05 Lymph # (Auto) 1.4 10^3/uL (1.5-3.5) L 09/29/23 13:05 [place] # (Auto) 0.4 10^3/uL (0.0-1.0) 09/29/23 13:05 Eos # (Auto) 0.2 10^3/uL (0.0-0.7) 09/29/23 13:05 Baso # (Auto) 0.1 10^3/uL (0.0-0.1) 09/29/23 13:05 Absolute Nucleated RBC 0.00 x10^3/uL 09/29/23 13:05 Nucleated RBC % 0.0 /100WBC 09/29/23 13:05 PT 11.8 secs (9.9-12.6) 09/29/23 13:05 INR 1.1 (0.8-1.2) 09/29/23 13:05 Sodium 141 mmol/L (135-145) 09/30/23 04:30 Potassium 3.8 mmol/L (3.5-4.5) 09/30/23 04:30 Chloride 108 mmol/L (101-111) 09/30/23 04:30 Carbon Dioxide 27 mmol/L (21-32) 09/30/23 04:30 Anion Gap 6.0 (6-13) 09/30/23 04:30 BUN 17 mg/dL (6-20) 09/30/23 04:30 Creatinine 1.0 mg/dL (0.6-1.3) 09/30/23 04:30 Estimated GFR (MDRD) 74 (>89) L 09/30/23 04:30 Glucose 82 mg/dL (74-104) 09/30/23 04:30 Calcium 9.3 mg/dL (8.5-10.3) 09/30/23 04:30 Phosphorus 3.6 mg/dL (2.5-5.0) 09/30/23 04:30 Magnesium 1.8 mg/dL (1.7-2.3) 09/30/23 04:30 Total Bilirubin 0.9 mg/dL (0.2-1.0) 09/29/23 13:05 AST 20 IU/L (10-42) 09/29/23 13:05 ALT 17 IU/L (10-60) 09/29/23 13:05 Alkaline Phosphatase 69 IU/L (42-121) 09/29/23 13:05 Troponin I High Sens 17.6 ng/L (2.3-19.7) 09/29/23 13:05 Total Protein 7.3 g/dL (6.4-8.9) 09/29/23 13:05 Albumin 4.6 g/dL (3.2-5.5) 09/29/23 13:05 Globulin 2.7 g/dL (2.1-4.2) 09/29/23 13:05 Albumin/Globulin Ratio 1.7 (1.0-2.2) 09/29/23 13:05 Lipase 34 U/L (11-82) 09/29/23 13:05 - Procedures Procedures: Procedures EXCISION OF ASCENDING COLON, ENDO, DIAGN (09/24/17)
[2023-10-01] MEDS: HYDROcod/ACETAM 5/325 MG TABLET PO PRN (02:01)
[2023-10-01] MEDS: SODIUM CHLORIDE FLUSH 0.9% 10 ML SYRINGE IVP SCH ×2 (02:02→08:07)
[2023-10-01 05:53] LABS: CALCIUM 9.3 mg/dL (8.5-10.3); POTASSIUM 4.1 mmol/L (3.5-4.5)
[2023-10-01 06:21] LABS: THYROID STIMULATING HORMONE 2.18 uIU/mL (0.34-5.60)
[2023-10-01] MEDS: LOSARTAN 50 MG TABLET PO SCH (08:05)
[2023-10-01] MEDS: DICLOFENAC SODIUM DR 75 MG TABLET PO SCH (08:05)
[2023-10-01] MEDS: amLODIPine 5 MG TABLET PO SCH (08:05)
[2023-10-01] MEDS: [UNRECOGNIZED DRUG - OTHER] PO SCH (08:07)
[2023-10-01] MEDS: ALFUZOSIN HCL 10 MG PO SCH (08:07)
[2023-10-01] MEDS ORDERED: SODIUM CHLORIDE 0.9% 500 ML IV ONE (08:26)
--- NOTE | 2023-10-01 11:23 | Discharge Plan ---
Discharge Plan Problem Reviewed?: Yes Disposition: Home, Self Care Condition: Fair Prescriptions: Aspirin [Aspirin EC] 81 mg PO DAILY #30 tab Diet: Low Sodium Activity Restrictions: No exertion Shower Restrictions: No Driving Restrictions: Yes (No driving due to lightheadedness unexplained) Weight Bearing: Full Weight Instruction Topics: Syncope Causes, Dizziness Fainting Poss Causes, ED Fainting Unkn Cause Health Concerns: You were hospitalized to evaluate a near-fainting episode. We found that your pulse is very slow, which may have been the cause of the faint. We also found you to be mildly dehydrated. Also, your Echocardiogram done here showed a borderline-weak heart muscle. You are being discharged home today and advised: 1) You need a 14-day heart monitor ordered by your PCP or Prescription Clerk. 2) You need to be a "couch potato" and not drive, until the cause of your fainti ng is established and you are cleared top resume activitir=es and to drive. 3) You need an [facility] referral to a Prescription Clerk to see if you need a pacemaker implanted and to evaluate and manage your borderline-weak heart muscle. One of the tests will be a stress test to evaluate for coronary blockages. Therefore you are advised to start taking 1 baby aspirin daily in case there is coronary disease. Also resume your cholesterol medication Simvastatin. 4) Please keep taking your blood pressure medicines. Plan of Treatment: As above. Care Goals: Improvement in symptoms and stabilization are the goals. Assessment: The patient understands and is agreeable with the plan. Additional Instructions or Follow Up instructions: If you have new or worsening symptoms, call your PCP or your Prescription Clerk for advice, or come to the ER. No Smoking: If you smoke, Please STOP! Call for help. Follow-up with: YADI SMITH ARNP [Physician No Access] -
--- NOTE | 2023-10-01 12:47 | DISCHARGE SUMMARY ---
Discharge Summary Admit Date: 09/29/23 Discharge Date: 10/01/23 Discharging Provider: Sophia Hallman MD Primary Care Provider: Wolf Reyes NP Code Status: Attempt Resuscitation Condition at Discharge: Fair Discharge Disposition: 01 Home, Self Care - HPI History of Present Illness: Will Mares is a 72-year-old man who presented to the emergency room after a near syncopal episode at home. Patient reports that around noon time he developed weakness and dizziness and he felt like his "eyes were going in opposite directions". He felt like a "life draining out of him." He reports this lasted for approximately 10 minutes. He did no lose consciousness. There was no chest pain or SOB, no fever. No new meds, no recent travel. EMS service was called and by the time they arrived the feeling was over. He also reports that he had a similar episode several months ago but that episode only lasted for seconds. He reports he is scheduled for a shoulder replacement in 2 days. 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 But the patient's own description was a little different with transient diplopia and weakness. He was noted to have ectopy prior to arrival. In the ER, on telemetry he did have very frequent multifocal PVCs including some R on T PVCs and very short runs of V. tach. CT and CT angiography head and neck were negative as were labs including CBC, CMP, magnesium, troponin. Given the vcentricular ectopy, the ER provider discussed the case by phone with Drs. Bautista, Hr Shared Services Consultant in [place], who recommended overnight Observation to make sure he was not having more malignant arrhythmias, and to get an Echocardiogram. - HOSPITAL COURSE Hospital Course: (1) Syncope Etiology is not clear. He was not orthostatic. On his last day of hospitalization, his labs showed mild prerenal azotemia, so he received saline 500 cc bolus. Also, telemetry showed no further ventricular ectopy, but showed marked bradycardia, HR down to 35 briefly. I suspect he had an episode of severe bradycardia at home that lasted for a prolonged time that caused the near-syncope. He was discharged home and advised that he may not operate a vehicle, he needs to be monitored with a Zio patch (see #2), he should not be doing any exertion, and he needs to be cleared to resume driving and usual activities, once the cause is defined and managed, and after he is seen by a Hr Shared Services Consultant. 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 He is on no medications that cause bradycardia. He has a normal TSH, ruling out Hypothyroidism. I suspect he has conduction system disease. He was discharged and I called his PCP and gave a warm handoff and recommended he have a Zio patch 14-day heart monitor placed [facility] and to have referral to a Hr Shared Services Consultant for evaluation for (likely) pacemaker implant. (3) Cardiomyopathy The patient underwent an Echocardiogram. This showed normal chamber sizes, mild LVH and mild global LV hypokinesis with a EF 45 to 50%. Since the patient said he underwent a stress test 10 years ago, which led to an angiogram that was normal, he will need workup for CAD or other causes of cardiomyopathy again. I asked him to start taking 1 baby aspirin daily in case he has CAD as the cause for the cardiomyopathy, and to continue his statin treatment. (4) HTN (hypertension) BP was mildly elevated here 150-170 systolic. He may continue his usual home BP meds, since none of them cause bradycardia. - ALLERGIES Allergies/Adverse Reactions: Allergies Allergy/AdvReac Type Severity Reaction Status Date / Time morphine AdvReac Severe bradycardia Verified 09/29/23 13:02 - MEDICATIONS Home Medications: Ambulatory Orders Medication Instructions Recorded Confirmed Simvastatin [Zocor] 20 mg PO QPM 03/07/13 01/07/23 Alfuzosin HCl [Alfuzosin HCl ER] 10 mg PO DAILY 09/23/17 09/29/23 HYDROcodone/ACET 10/325 [[place] 10 1 each PO Q6H PRN #5 tablet 09/27/20 09/29/23 mg/325 mg] Amlodipine Besylate [Norvasc] 1 tab PO DAILY 01/07/23 09/29/23 Diclofenac Sodium 75 mg PO DAILY 01/07/23 09/29/23 Losartan [Cozaar] 1 tab PO DAILY 01/07/23 09/29/23 Ezetimibe/Rosuvastatin Calcium 20 mg PO DAILY 09/29/23 09/29/23 [Rosuvastatin-Ezetimibe 20-10Mg] Aspirin [Aspirin EC] 81 mg PO DAILY #30 tab 10/01/23 - PHYSICAL EXAM AT DISCHARGE General Appearance: positive: No acute distress, Alert Eyes Bilateral: positive: Normal inspection, EOMI ENT: positive: ENT inspection nml, No signs of dehydration Neck: positive: Nml inspection, No JVD Respiratory: positive: No respiratory distress, Breath sounds nml Cardiovascular: positive: Regular rate & rhythm, No murmur Abdomen: positive: Non-tender, Nml bowel sounds, No distention Skin: positive: Warm, Dry Extremities: positive: Non-tender, No pedal edema Neurologic/Psychiatric: positive: Oriented x3, CN's nml (2-12), Motor nml - LABS Result Diagrams: 09/29/23 13:05 10/01/23 04:59 - DIAGNOSTIC IMAGING Diagnostic Imaging Results: Final report reviewed - FOLLOW UP Follow Up: See PCP and a Hr Shared Services Consultant [facility]. Have a ZioPatch ordered and applied RAD[facility]. - TIME SPENT Time Spent in Discharge (Minutes): 45
[2023-10-01 12:48] VITALS: BP 168/90; O2SAT 95
== END 2023-10-01 13:10 | disposition home or self-care (01) | DRG 312 ==
LOC: EDUNIT# → ED 12:54 → MS2 17:04 → OBSVTOIN 09-30 16:48
PROVIDERS: ADMIT Internal Medicine; ATTEND Internal Medicine
DX: R55 Syncope and collapse (principal); I49.3 Ventricular premature depolarization; I47.20 Ventricular tachycardia, unspecified; I42.9 Cardiomyopathy, unspecified; E78.5 Hyperlipidemia, unspecified; R00.1 Bradycardia, unspecified; I10 Essential (primary) hypertension; E78.00 Pure hypercholesterolemia, unspecified; E86.0 Dehydration
CPT/HCPCS: 36415; 70450; 70496; 70498; 80048; 80053; 83690; 83735; 84100; 84443; 84484; 85025; 85610; 93005; 93306; 99285; A9270; G0378

== ENCOUNTER 2023-10-05 12:33 | Emergency (ER) | payer MEDICARE, OTHER ==
--- NOTE | 2023-10-05 13:29 | XRAY Report ---
PROCEDURE: Chest 1V INDICATIONS: Chest pain TECHNIQUE: One view of the chest was acquired. COMPARISON: None. FINDINGS: Surgical changes and devices: None. Lungs and pleura: No pleural effusions or pneumothorax. Lungs are clear. Small nodule within the left lung base measuring 8 mm. Mediastinum: Mediastinal contours appear normal. Heart size is normal. Bones and chest wall: No suspicious bony lesions. Overlying soft tissues appear unremarkable. Rig ht shoulder prosthesis. Left shoulder anchors. IMPRESSION: No acute cardiopulmonary process. Right lower lobe probable nodule. Consider nonemergent CT Reviewed by: Lee Remy MD on 10/05/2023 12:28 PM [place] Approved by: Lee Remy MD on 10/05/2023 12:28 PM [facility] Station ID: [id number]
[2023-10-05 13:40] LABS: BASOPHILS # (AUTO) 0.1 10^3/uL (0.0-0.1); BASOPHILS % (AUTO) 0.8 %; EOSINOPHILS # (AUTO) 0.2 10^3/uL (0.0-0.7); EOSINOPHILS % (AUTO) 2.1 %; HGB - HEMOGLOBIN 15.6 g/dL (14.0-18.0); LYMPHOCYTES # (AUTO) 1.8 10^3/uL (1.5-3.5); LYMPHOCYTES % (AUTO) 23.4 %; MEAN CORPUSCULAR HEMOGLOBIN 29.8 pg (27.0-31.0); MEAN CORPUSCULAR HGB CONC 33.2 g/dL (32.0-36.0); MEAN CORPUSCULAR VOLUME 89.7 fL (80.0-94.0); MEAN PLATELET VOLUME 10.1 fL (7.4-11.4); MONOCYTES # (AUTO) 0.5 10^3/uL (0.0-1.0); NEUTROPHILS # (AUTO) 5.1 10^3/uL (1.5-6.6); NEUTROPHILS % (AUTO) 67.6 %; PLT - PLATELET COUNT 210 10^3/uL (130-450); RED BLOOD COUNT 5.24 10^6/uL (4.70-6.10); RED CELL DISTRIBUTION WIDTH 12.1 % (12.0-15.0); WHITE BLOOD COUNT 7.5 x10^3/uL (4.8-10.8)
[2023-10-05 13:57] LABS: ALBUMIN 4.6 g/dL (3.2-5.5); ALBUMIN/GLOBULIN RATIO 1.8 (1.0-2.2); BILIRUBIN,TOTAL 0.8 mg/dL (0.2-1.0); CALCIUM 9.8 mg/dL (8.5-10.3); CREATININE 1.1 mg/dL (0.6-1.3); POTASSIUM 4.1 mmol/L (3.5-4.5); TOTAL PROTEIN 7.1 g/dL (6.4-8.9)
--- NOTE | 2023-10-05 14:18 | ED Physician Documentation ---
PD HPI DYSPNEA - Stated complaint Stated Complaint: HIGH BP/HEAD PX - Chief complaint Chief Complaint: Cardiac - History obtained from History obtained from: Patient - History of Present Illness Timing - onset: How many days ago (6) Timing - onset during: Rest Timing - duration: Days (6) Timing - details: Gradual onset, Still present, Waxing and waning Inciting event(s): Other (patient has prostate disease and has decreased his intake of water to prevent getting up at night.) Improved by: Rest, Sitting up Worsened by: Exertion, Laying flat Associated symptoms: Anxiety. No: Fever, Cough, Hemoptysis, Wheezing, Chest pain / discomfort, Palpitations, Diaphoresis, Bilateral edema, Unilateral edema Similar symptoms before: Work up / diagnostics (has had Stroke w/u and out patient follow up.), Has not had sx before Recently seen: Emergency Dept, Admitted - Additional information Additional information: 72-year-old Derrick Mares presents to the emergency department today with persistence of generalized weakness fatigue headache. He has been recently hospitalized for evaluation of potential TIA and he has had an echocardiogram done as well. He has outpatient follow-up with cardiology in October.The patient notes that he does have a problem with his prostate and that he has decreased the oral intake of fluids to avoid having to get up so many times in the night. PD PAST MEDICAL HISTORY - Past Medical History Past Medical History: Yes Cardiovascular: Hypertension, High cholesterol Respiratory: Sleep apnea Endocrine/Autoimmune: None GI: None : Benign prostate hypertrophy, Kidney stones HEENT: None Musculoskeletal: Osteoarthritis, Chronic back pain Derm: Other - Past Surgical History Past Surgical History: Yes General: Colonoscopy Ortho: Hip replacement, Shoulder arthroplasty HEENT: Tonsil/Adenoidectomy - Present Medications Home Medications: Ambulatory Orders Medication Instructions Recorded Confirmed Simvastatin [Zocor] 20 mg PO QPM 03/07/13 10/06/23 Alfuzosin HCl [Alfuzosin HCl ER] 10 mg PO DAILY 09/23/17 10/06/23 Amlodipine Besylate [Norvasc] 1 tab PO DAILY 01/07/23 10/06/23 Diclofenac Sodium 50 mg PO DAILY 01/07/23 10/06/23 Losartan [Cozaar] 1 tab PO DAILY 01/07/23 10/06/23 Aspirin [Aspirin EC] 81 mg PO DAILY #30 tab 10/01/23 10/06/[address] [Voltaren] 75 mg PO DAILY 10/06/23 10/06/23 HYDROcod/ACETAM 5/325 [[place] 5/325] 2 tab PO Q6HR PRN 10/06/23 10/06/23 - Allergies Allergies/Adverse Reactions: Allergies Allergy/AdvReac Type Severity Reaction Status Date / Time morphine AdvReac Severe bradycardia Verified 10/05/23 12:37 - Social History Does the pt smoke?: No Smoking Status: Never smoker Does the pt drink ETOH?: Yes Does the pt have substance abuse?: No - Immunizations Immunizations are current?: Yes Immunizations: TDAP >10years/unknown - POLST Patient has POLST: No PD ED PE NORMAL - Vitals Vital signs reviewed: Yes (hypertensive ) - General General: Alert and oriented X 3, No acute distress, Well developed/nourished - HEENT HEENT: Atraumatic, PERRL, EOMI, Other (dry mucuos membranes mild ptosis to the left eye, scleral injection is mild, minimal lid swelling. nystagmus is present bilaterally and symptoms with looking to the left. ) - Neck Neck: Supple, no meningeal sign, No bony TTP - Cardiac Cardiac: RRR, No murmur - Respiratory Respiratory: No respiratory distress, Clear bilaterally - Abdomen Abdomen: Soft, Non tender - Back Back: No CVA TTP, No spinal TTP - Derm Derm: Normal color, Warm and dry, No rash - Extremities Extremities: No deformity, No edema - Neuro Neuro: Alert and oriented X 3, lot associate 2-12 intact, No motor deficit, No sensory deficit, Normal speech Eye Opening: Spontaneous Motor: Obeys Commands Verbal: Oriented GCS Score: 15 - Psych Psych: Normal mood, Normal affect Results - Vitals Vitals: Vital Signs - 24 hr 10/05/23 10/05/23 10/05/23 21:23 21:30 22:00 Temperature 36.5 C Heart Rate 83 83 82 Respiratory 17 17 18 Rate Blood Pressure 162/107 H 160/100 H 162/105 H O2 Saturation 96 96 98 10/05/23 10/05/23 10/05/23 22:30 23:00 23:30 Temperature 36.8 C 36.8 C Heart Rate 80 90 88 Respiratory 16 18 16 Rate Blood Pressure 158/98 H 175/105 H 179/100 H O2 Saturation 98 94 96 10/06/23 10/06/23 10/06/23 00:00 00:30 01:00 Temperature 36.5 C 36.8 C Heart Rate 78 80 78 Respiratory 18 16 14 Rate Blood Pressure 179/107 H 166/100 H 175/105 H O2 Saturation 94 96 93 10/06/23 10/06/23 10/06/23 01:30 02:00 02:30 Temperature Heart Rate 89 92 84 Respiratory 16 14 14 Rate Blood Pressure 148/74 H 137/80 H 146/93 H O2 Saturation 95 94 91 L 10/06/23 10/06/23 10/06/23 03:00 03:30 04:00 Temperature Heart Rate 82 81 95 Respiratory 14 14 17 Rate Blood Pressure 127/85 H 125/106 H 129/74 O2 Saturation 93 92 95 10/06/23 10/06/23 10/06/23 04:30 05:00 05:30 Temperature Heart Rate 79 81 72 Respiratory 14 14 16 Rate Blood Pressure 166/89 H 107/66 141/89 H O2 Saturation 92 91 L 95 10/06/23 10/06/23 10/06/23 06:00 06:30 07:00 Temperature Heart Rate 75 78 56 L Respiratory 13 13 13 Rate Blood Pressure 101/63 115/58 L 147/68 H O2 Saturation 92 95 96 10/06/23 10/06/23 10/06/23 07:30 08:00 08:30 Temperature Heart Rate 79 65 88 Respiratory 12 12 16 Rate Blood Pressure 139/90 H 123/69 138/79 H O2 Saturation 95 95 98 10/06/23 10/06/23 10/06/23 09:30 09:54 10:28 Temperature Heart Rate 90 85 97 Respiratory 16 20 18 Rate Blood Pressure 146/95 H 140/96 H 141/71 H O2 Saturation 96 93 95 10/06/23 10/06/23 10/06/23 11:00 12:30 13:00 Temperature 36.8 C Heart Rate 82 81 86 Respiratory 16 14 16 Rate Blood Pressure 150/99 H 160/85 H 152/87 H O2 Saturation 95 96 100 10/06/23 10/06/23 10/06/23 13:30 14:00 14:30 Temperature Heart Rate 61 62 65 Respiratory 16 16 14 Rate Blood Pressure 118/82 H 155/82 H 118/90 H O2 Saturation 93 93 98 Oxygen O2 Source Room air - EKG (time done) 1247 EKG releavant findings:: EKG personally interpreted by author of this note. Relevant findings are: Rate: Rate (enter#) (59) Rhythm: NSR, Other (multiform PVC's are present ) QRS: LVH Compare to prior EKG: Unchanged from prior EKG (SPT 09-29-23 no changes) Computer interpretation: Agree with computer - Labs Labs: Laboratory Tests 10/05/23 10/05/23 10/05/23 13:29 13:29 13:29 WBC 7.5 RBC 5.24 Hgb 15.6 Hct 47.0 MCV 89.7 MCH 29.8 MCHC 33.2 RDW 12.1 Plt Count 210 MPV 10.1 Neut # (Auto) 5.1 Lymph # (Auto) 1.8 Moca # (Auto) 0.5 Eos # (Auto) 0.2 Baso # (Auto) 0.1 Absolute Nucleated RBC 0.00 Nucleated RBC % 0.0 Sodium 140 Potassium 4.1 Chloride 103 Carbon Dioxide 30 Anion Gap 7.0 BUN 16 Creatinine 1.1 Estimated GFR (MDRD) 66 L Glucose 106 H Calcium 9.8 Total Bilirubin 0.8 AST 22 ALT 19 Alkaline Phosphatase 67 Troponin I High Sens 16.0 B-Natriuretic Peptide 102 H Total Protein 7.1 Albumin 4.6 Globulin 2.5 Albumin/Globulin Ratio 1.8 Lipase 36 Urine Opiates Screen Ur Buprenorphine Scrn Ur Oxycodone Screen Urine Methadone Screen Ur Barbiturates Screen Ur Tricyclics Screen Ur Phencyclidine Scrn Ur Amphetamine Screen U Methamphetamines Scrn U Benzodiazepines Scrn Urine Cocaine Screen U Cannabinoids Screen Ur Drug Screen Comment Ethyl Alcohol 10/05/23 10/05/23 19:11 19:22 WBC RBC Hgb Hct MCV MCH MCHC RDW Plt Count MPV Neut # (Auto) Lymph # (Auto) Moca # (Auto) Eos # (Auto) Baso # (Auto) Absolute Nucleated RBC Nucleated RBC % Sodium Potassium Chloride Carbon Dioxide Anion Gap BUN Creatinine Estimated GFR (MDRD) Glucose Calcium Total Bilirubin AST ALT Alkaline Phosphatase Troponin I High Sens B-Natriuretic Peptide Total Protein Albumin Globulin Albumin/Globulin Ratio Lipase Urine Opiates Screen POSITIVE H Ur Buprenorphine Scrn NEGATIVE Ur Oxycodone Screen NEGATIVE Urine Methadone Screen NEGATIVE Ur Barbiturates Screen NEGATIVE Ur Tricyclics Screen NEGATIVE Ur Phencyclidine Scrn NEGATIVE Ur Amphetamine Screen NEGATIVE U Methamphetamines Scrn NEGATIVE U Benzodiazepines Scrn NEGATIVE Urine Cocaine Screen NEGATIVE U Cannabinoids Screen NEGATIVE Ur Drug Screen Comment CUTOFF CONC BELOW: Ethyl Alcohol < 10.0 - Rads (name of study) chest Relevant Findings:: Prelim report reviewed (Impression: No acute cardiopulmonary process. Right lower lobe probable nodule. Consider nonemergent CT.), EMP independent interpretation of test, See rad report CT head Relevant Findings:: Prelim report reviewed (Impression: No acute intracranial pathology. Sequela of chronic microvascular ischemic disease.), EMP independent interpretation of test, See rad report MRI brain Relevant Findings:: Prelim report reviewed (Impression: 1. No acute intracranial process. Mild to moderate atrophy and chronic microvascular ischemic changes.), EMP independent interpretation of test, See rad report Procedures - IVC sono (time) 1400 Bedside IVC sono: IVC measures (cm) (0.72), Significant dehydration (est 3 liter deficit) PD Medical Decision Making - ED course Complexity details: reviewed old records, reviewed results, re-evaluated patient, considered differential, d/w patient, d/w family Reviewed Lab Results: We reviewed a complete blood cell count showing an normal white blood cell count normal hemoglobin hematocrit and platelets with normal indices. Chemistries equally boring with normal electrolytes normal kidney and liver function a BNP was elevated 1 tack above normal at 102. These laboratory studies do not co ntribute to the specific diagnosis and are reassuring for a benign etiology. MRA brain: Impression: No areas of hemodynamically significant stenosis vascular occlusion or aneurysmal dilation within the anterior circulation. No areas of hemodynamically significant stenosis or vascular occlusion or aneurysmal dilation within the posterior circulation. It is noted above, the vertebral artery as well as portions of the basilar artery are not included within the [id number]. ED course: 72-year-old Will Mares presents with left lid ptosis dizziness a feeling of weakness and a headache. His symptoms started with photophobia and hypertension. His presentation does not fit any classic etiology. His symptoms today have persisted and are debilitating to the patient.We attempted to treat the headache with a migraine cocktail and this did not provide relief for the patient. He did at 1 point become nauseated vomited 4 times felt better for a brief period of time. The patient had been hospitalized with an episode of the symptoms last week and spent 2 nights in the hospital. Yesterday he was symptom-free. Today he had his episode and his symptoms have persisted. I did repeat CT scanning of the head again without findings. I evaluated the patient at the bedside with POCUS thinking his symptoms may be related to dehydration and we did indeed find that he was dehydrated fairly significantly and we administered fluid without change in his symptoms. We did have the patient on the monitor he does have frequent PVCs. Today he did not have any runs of PVCs and he never developed bradycardia less than 56. The patient has a history of claustrophobia and thus MRI scanning was not obtained on his prior hospitalization. We will attempt this tomorrow. We have a consult out to neurology.At shift change his care is turned over to Dr. Sexton and I am anticipating returning to the department tomorrow morning to resume care. Today 10/06/2023 we were able to perform MRI scanning of Mr. Mares's brain. The scans were interrupted by motion artifact with the patient being claustrophobic and requiring Ativan prior to scanning. He became more agitated after administration of Versed in the scanner. The scan was adequate to determine no infarction to the brainstem or brain. The MRA portion of the scan was not adequate for evaluation of the vertebral or basilar arteries. This scan was helpful in dismissing stroke from the differential leaving horners syndrome, mysthenia gravis and trigeminal autonomic cephalalgias in the differnetial. All of these can have intermittent symptoms especially the MG. The patient will require time for more episodes and a visit to the neurologist for definitive diagnosis. Departure - Departure Disposition: 01 Home, Self Care Clinical Impression: Ataxia Ptosis Qualifiers: Laterality: left Qualified Code(s): H02.402 - Unspecified ptosis of left eyelid Condition: Stable Instructions: Ptosis, ED Dehydration Follow-Up: YADI SMITH NP [Primary Care Provider] - Comments: Will, today we were able to conclusively show that you have not had a stroke related to your symptoms. Your symptoms are intermittent and the differential still includes a number of processes which are rare. A follow-up with a neurologist is indicated as experience is important to distinguish between these processes. We are still considering myasthenia gravis, Jeancarlos syndrome and trigeminal autonomic cephalalgia as causes of these episodes. Myasthenia gravis is an auto-immune disorder causing weakness that usually first appears as a drooping of an eyelid. It can sometimes present with variable symptoms as it develops. The other two are less likely based on history and exam. None of these are life threatening. Call your primary care doctor and have them make a referral to neurology for followup. Discharge Date/Time: 10/06/23 15:02
[2023-10-05] MEDS: SODIUM CHLORIDE 0.9% 1,000 ML IV STA (14:52)
[2023-10-05] MEDS: ONDANSETRON 4 MG/2 ML VIAL IVP STA (15:39)
--- NOTE | 2023-10-05 16:58 | CT Report ---
PROCEDURE: Head WO INDICATIONS: headache, hypertension, weakness TECHNIQUE: Noncontrast 4.5 mm thick angled axial sections acquired from the foramen magnum to the vertex. For r adiation dose reduction, the following was used: automated exposure control, adjustment of mA and/or kV according to patient size. COMPARISON: None. FINDINGS: Image quality: Excellent. CSF spaces: Basal cisterns are patent. No extra-axial fluid collections. Ventricles are normal in size and shape. Brain: No midline shift. No intracranial masses or hemorrhage. Gee-white matter interface is norm al. Periventricular white matter hypodensity suggestive of chronic microvascular ischemic disease. Skull and face: Calvarium and visualized facial bones are intact, without suspicious lesions. Sinuses: Visualized sinuses and mastoids are clear. IMPRESSION: No acute intracranial pathology. Sequelae of chronic microvascular ischemic disease. Reviewed by: Lee Remy MD on 10/05/2023 3:56 PM [place] Approved by: Lee Remy MD on 10/05/2023 3:56 PM [place] Station ID: [id number]
[2023-10-05] MEDS: diphenhydrAMINE INJ 50 MG/ML VIAL IVP STA (18:04)
[2023-10-05] MEDS: SODIUM CHLORIDE 0.9% 500 ML IV STA (18:04)
[2023-10-05] MEDS: KETOROLAC 30 MG/ML VIAL IVP STA (18:07)
[2023-10-05] MEDS: DEXAMETHASONE 10 MG/ML VIAL IVP STA (18:08)
[2023-10-05] MEDS: PROCHLORPERAZINE 10 MG/2 ML VIAL IVP STA (18:11)
[2023-10-05] MEDS: DROPERIDOL 5 MG/2 ML VIAL IVP STA (19:35)
[2023-10-05 19:54] LABS: AMPHETAMINE SCREEN,URINE NEGATIVE (NEGATIVE); BARBITURATE SCREEN,UR NEGATIVE (NEGATIVE); BENZODIAZEPINES SCREEN, URINE NEGATIVE (NEGATIVE); BUPRENORPHINE SCREEN, URINE NEGATIVE (NEGATIVE); COCAINE SCREEN URINE NEGATIVE (NEGATIVE); METHADONE SCREEN, URINE NEGATIVE (NEGATIVE); METHAMPHETAMINES SCREEN, URINE NEGATIVE (NEGATIVE); OPIATE SCREEN, URINE POSITIVE (NEGATIVE); OXYCODONE SCREEN, URINE NEGATIVE (NEGATIVE); THC CANNABINOID SCREEN, URINE NEGATIVE (NEGATIVE); TRICYCLIC ANTIDEPRESSANT,URINE NEGATIVE (NEGATIVE)
[2023-10-05] MEDS: HYDROcod/ACETAM 5/325 MG TABLET PO STA (20:25)
[2023-10-05] MEDS: LORazepam 2 MG/ML VIAL IVP STA (22:00)
--- NOTE | 2023-10-05 22:06 | ED Physician Documentation ---
ED Addendum - Addendum Addendum: 10/05/23 22:04 Patient was signed out to me by Dr. Winter, please see his note for full history and physical on this patient. Briefly the patient is a 72-year-old male who presents to the emergency department complaining of a left eye ptosis, feeling like he is having difficulty focusing his left eye and feeling like he is off balance with ambulation. He does not feel vertiginous. There is no spinning. He states he had similar symptoms about a week ago when he was admitted to the hospital here. CT angiogram did not show any acute intervenable findings. A brain MRI was not performed and he was admitted. He states that the symptoms lasted for about 10 minutes last time he was here, today they have persisted. He is on aspirin 81 mg by mouth daily. He states he feels very anxious and restless today as well. Did have a slight left-sided headache earlier but that is feeling better. He is retired from the and used to work for [employer]. He was given droperidol here but does not feel much different. He was given Ativan for anxiety. He will have a brain MRI in the morning. He was given aspirin here as well. Departure - Departure Clinical Impression: Ataxia Ptosis Qualifiers: Laterality: left Qualified Code(s): H02.402 - Unspecified ptosis of left eyelid Condition: Stable Forms: PCP List
[2023-10-05] MEDS: ASPIRIN CHEW 81 MG TABLET PO STA (22:32)
[2023-10-06] MEDS ORDERED: GADOTERATE MEGLUMINE 10 MMOL/20 ML VIAL ONE (09:23)
[2023-10-06] MEDS: LORazepam 2 MG/ML VIAL IVP STA (10:57)
[2023-10-06] MEDS: MIDAZOLAM 10 MG/2 ML VIAL IVP STA (12:31)
--- NOTE | 2023-10-06 12:44 | MRI Report ---
PROCEDURE: Brain WO INDICATIONS: L eye ptosis, dizzy TECHNIQUE: Noncontrast axial T1 spin echo, axial T2 fast spin echo, sagittal and axial FLAIR, coronal T2 fast sp in echo, axial gradient echo, axial diffusion and ADC through the brain. COMPARISON: MRA brain 10/06/2023, CT head 10/06/2023 FINDINGS: Image quality: Motion is present multiple sequences, limiting areas of fine detail evaluation. The ventricular system and cortical sulci demonstrate atrophy, consistent for patient's stated age. There are areas of hyperintense T2/FLAIR signal in the periventricular and subcortical white matter. There is no acute intra or extra-axial fluid collection. No acute hemorrhage, mass lesion or midlin e shift. Brainstem is unremarkable. There are no areas of restricted diffusion. Globes are symmetr ical. Sinuses are aerated. Osseous structures are intact. IMPRESSION: 1. No acute intracranial process. 2. Mild to moderate atrophy and chronic microvascular ischemic changes. Reviewed by: Danya Mcadams MD on 10/06/2023 12:43 PM PST Approved by: Danya Mcadams MD on 10/06/2023 12:43 PM PST Station ID: [id number]
--- NOTE | 2023-10-06 12:49 | MRI Report ---
PROCEDURE: Angio Head WO INDICATIONS: L eye ptosis, dizzy TECHNIQUE: Noncontrast axial 3-D [id number]-[id number] MR angiogram, with 3-dimensional maximum intensity projection (M IP) reformats of the internal carotid arteries and posterior circulation then performed. COMPARISON: None. FINDINGS: Image quality: Diagnostic. Anterior circulation: Intracranial internal carotid arteries demonstrate normal size and intralumina l flow signal. The flow within the paired anterior cerebral arteries is normal and symmetric. The f low within the middle cerebral arteries is normal and symmetric. The anterior communicating artery i s seen. No stenoses, occlusions, or aneurysms. Posterior circulation: The distal vertebral arteries are not included in the cyjqe-wr-puli. In additi on, the proximal most portion of the basilar artery is also not included in the [id number]-[id number]. Remain ing portions of the basilar artery are unremarkable. The flow within the posterior cerebral arteries is normal and symmetric. No stenoses, occlusions, or aneurysms. IMPRESSION: No areas of hemodynamically significant stenosis, vascular occlusion or aneurysmal dilation within th e anterior circulation. No areas of hemodynamically significant stenosis, vascular occlusion or aneurysmal dilation within th e posterior circulation. It is noted as above, the vertebral artery as well as portions of the basila r artery are not included within the [id number]. Reviewed by: Danya Mcadams MD on 10/06/2023 12:48 PM PST Approved by: Danya Mcadams MD on 10/06/2023 12:48 PM PST Station ID: [id number]
[2023-10-06 15:02] VITALS: BP 118/90; O2SAT 98
== END 2023-10-06 15:02 | disposition home or self-care (01) ==
LOC: ED 12:33
DX: R27.0 Ataxia, unspecified (principal); H02.402 Unspecified ptosis of left eyelid; I10 Essential (primary) hypertension; E78.00 Pure hypercholesterolemia, unspecified; Z79.899 Other long term (current) drug therapy; Z79.82 Long term (current) use of aspirin
CPT/HCPCS: 36415; 70450; 70544; 70551; 71045; 80053; 80306; 83690; 83880; 84484; 85025; 93005; 96361; 96374; 96375; 96376; 99284; 99285; A9270; A9575; G0480; J1200; J2060; J2250; 80320

== ENCOUNTER 2023-10-24 12:45 | Outpatient (CLI) | payer MEDICARE, OTHER ==
[2023-10-24 14:04] LABS: THYROID STIMULATING HORMONE 0.73 uIU/mL (0.34-5.60)
--- NOTE | 2023-10-24 14:39 | CT Report ---
PROCEDURE: CT chest without contrast INDICATIONS: Myasthenia gravis without (acute) exacerbation. Stat interpretation requested TECHNIQUE: Helical axial CT of the chest was obtained without contrast and reformatted in multiple pl anes. Radiation dose reduction was achieved using automated exposure control, adjustment of mA and/or kV according to patient size. COMPARISON: None FINDINGS: Image quality: Lack of intravenous contrast limits assessment of solid and vascular structures, parti cularly for neoplasm. No right shoulder prosthesis associated with metallic spray artifact, limiting several images in the thoracic inlet Lungs and pleura: Lungs and pleural spaces are clear without pulmonary infiltrate, pneumothorax or pl eural effusion. Scattered dependent pleural thickening is nonspecific Mediastinum: Heart size is normal. No pericardial effusion. No large vessel abnormality. Unremarkable fat in the anterior mediastinum without evidence of mass lesion or adenopathy. Atherosclerotic vascu lar calcification, mild. Several calcified granulomas in the left hilum measuring up to 7 mm each. Chest wall and lower neck: Thyroid is unremarkable. No axillary or supraclavicular adenopathy by size . Bones: No aggressive osseous abnormality. Upper Abdomen: Unremarkable. IMPRESSION: Incidental left hilar calcified granulomas or calcified small lymph nodes reflect prior granulomatous disease. No evidence of thymoma Reviewed by: Roderick Thompson MD on 10/24/2023 1:38 PM [place] Approved by: Roderick Thompson MD on 10/24/2023 1:38 PM [place] Station ID: [id number]
[2023-10-25 20:08] LABS: THYROGLOBULIN ANTIBODY <1.0 IU/mL (0.0-0.9); THYROID PEROXIDASE (TPO) AB 47 IU/mL (0-34)
== END 2023-10-24 12:46 | disposition home or self-care (01) ==
LOC: LAB 12:45
PROVIDERS: ATTEND Nurse Practitioner Family
DX: H02.402 Unspecified ptosis of left eyelid (principal); R13.10 Dysphagia, unspecified; G70.00 Myasthenia gravis without (acute) exacerbation
CPT/HCPCS: 36415; 81599; 83519; 84439; 84443; 84481; 86255; 86376; 86800

== ENCOUNTER 2023-11-13 09:38 | Outpatient (CLI) | payer MEDICARE, OTHER ==
[2023-11-13] MEDS ORDERED: DIATRIZOATE MEGLU/DIATRIZO SOD 30 ML BOTTLE PO ONE (09:42)
[2023-11-13] MEDS ORDERED: iohexoL-300 100 ML VIAL ONE (09:42)
[2023-11-13] MEDS: iohexoL-300 100 ML VIAL IVP ONE (15:46)
[2023-11-13] MEDS: DIATRIZOATE MEGLU/DIATRIZO SOD 30 ML BOTTLE PO ONE (15:46)
--- NOTE | 2023-11-13 16:42 | CT Report ---
PROCEDURE: Abdomen/Pelvis W INDICATIONS: PARANEOPLASTIC NEUROMYOPATHY AND NEUROPATHY CONTRAST: Omni 300 100ml TECHNIQUE: After the administration of intravenous contrast, a CT scan of the abdomen and pelvis was performed. Images were recorded and evaluated at appropriate window settings. Reformats: coronal and sagittal. F or radiation dose reduction, the following was used: automated exposure control, adjustment of mA and /or kV according to patient size. COMPARISON: 09/01/2018 FINDINGS: Image quality: Diagnostic Lower chest: Bibasilar scarring/atelectasis. Chest findings from recent CT separately dictated. Liver: Unremarkable Gallbladder and biliary system: Gallstones are present. No ductal dilation. Pancreas: No ductal dilation Spleen: Nonenlarged Adrenals: No discrete nodules Kidneys: No solid renal masses requiring follow-up. No hydronephrosis. Vessels and lymph nodes: The main portal vein appears patent. No abdominal aortic aneurysm. No pathol ogic lymph nodes by size criteria. Bowel and peritoneum: No evidence of small bowel obstruction. No pathologic ascites. There are small peritoneal implants, for example in the left pelvis measuring 8 mm (), at the l eft paracolic gutter measuring 1.9 cm (). Colonic diverticula. Body wall: Unremarkable. Pelvis: Bladder is unremarkable. Heterogeneous prostate with relative mild enlargement on the right s anabell. There are hypodense regions along the left iliopsoas. Bones: Right arthroplasty. Left degenerative changes. Lumbosacral spondylosis. Bone island again seen at the right posterior iliac bone. No acute changes. IMPRESSION: No definite source of a paraneoplastic syndrome in the abdomen/pelvis by imaging. Small peritoneal implants are present, for example on the left paracolic gutter and left pelvis, prev iously seen to be stable or slightly smaller than 2018, where they appeared to be more compatible wit h fat necrosis or prior epiploic appendagitis. Hypodense regions along the left iliopsoas, likely extravasated joint/bursal fluid versus ganglion cy sts. Correlate with any symptoms. If concerning, MRI could further evaluate. If there is continued concern for underlying malignancy, consider repeat CT chest abdomen pelvis in 3 months. Reviewed by: Jaswinder Hagen MD on 11/13/2023 4:40 PM PST Approved by: Jaswinder Hagen MD on 11/13/2023 4:40 PM PST Station ID: [id number]
== END 2023-11-13 09:39 | disposition home or self-care (01) ==
LOC: DI 09:38
PROVIDERS: ATTEND Nurse Practitioner Family
DX: G13.0 Paraneoplastic neuromyopathy and neuropathy (principal); R93.5 Abnormal findings on diagnostic imaging of other abdominal regions, including retroperitoneum; R93.7 Abnormal findings on diagnostic imaging of other parts of musculoskeletal system; Z11.4 Encounter for screening for human immunodeficiency virus [HIV]; H02.402 Unspecified ptosis of left eyelid; R13.10 Dysphagia, unspecified
CPT/HCPCS: 36415; 74177; 80053; 81599; 85651; 86140; 86618; G0475; Q9963; Q9967; 87389

== ENCOUNTER 2023-11-13 09:39 | Outpatient (CLI) | payer MEDICARE, OTHER ==
[2023-11-13 10:17] LABS: ALBUMIN 4.8 g/dL (3.2-5.5); ALBUMIN/GLOBULIN RATIO 1.7 (1.0-2.2); ALKALINE PHOSPHATASE 64 IU/L (42-121); ALT ALANINE AMINOTRANSFERASE 17 IU/L (10-60); AST ASPARTATE AMINOTRANSFERASE 21 IU/L (10-42); BILIRUBIN,TOTAL 0.9 mg/dL (0.2-1.0); BUN - BLOOD UREA NITROGEN 21 mg/dL (6-20); CALCIUM 9.9 mg/dL (8.5-10.3); CARBON DIOXIDE - CO2 28 mmol/L (21-32); CHLORIDE 107 mmol/L (101-111); CREATININE 1.1 mg/dL (0.6-1.3); CRP - C-REACTIVE PROTEIN < 0.5 mg/dL (<0.5); GFR - MDRD 66 (>89); GLUCOSE 91 mg/dL (74-104); POTASSIUM 3.7 mmol/L (3.5-4.5); SODIUM 141 mmol/L (135-145); TOTAL PROTEIN 7.6 g/dL (6.4-8.9)
[2023-11-14 03:11] LABS: HIV SCREEN 4TH GENERATION Non Reactive (Non Reactive)
[2023-11-17 07:08] LABS: LYME TOTAL AB CIA Negative (Negative)
== END 2023-11-13 09:40 | disposition home or self-care (01) ==
LOC: LAB 09:39
PROVIDERS: ATTEND Nurse Practitioner Family
DX: G13.0 Paraneoplastic neuromyopathy and neuropathy (principal); Z11.4 Encounter for screening for human immunodeficiency virus [HIV]; H02.402 Unspecified ptosis of left eyelid; R13.10 Dysphagia, unspecified
CPT/HCPCS: 36415; 80053; 81599; 85651; 86140; 86618; G0475; 87389

== ENCOUNTER 2024-02-19 08:07 | Outpatient (CLI) | payer MEDICARE, OTHER ==
[2024-02-19] MEDS ORDERED: DIATRIZOATE MEGLU/DIATRIZO SOD 30 ML BOTTLE PO ONE (08:11)
[2024-02-19] MEDS ORDERED: iohexoL-300 100 ML VIAL ONE (08:11)
[2024-02-19] MEDS: DIATRIZOATE MEGLU/DIATRIZO SOD 30 ML BOTTLE PO ONE (11:37)
[2024-02-19] MEDS: iohexoL-300 100 ML VIAL IVP ONE (11:37)
--- NOTE | 2024-02-19 12:14 | CT Report ---
PROCEDURE: Abdomen/Pelvis W INDICATIONS: INTRA-ABD AND PELVIC SWELLING, MASS AND LUMP CONTRAST: Omni 300 100ml TECHNIQUE: After the administration of intravenous contrast, a CT scan of the abdomen and pelvis was performed. Images were recorded and evaluated at appropriate window settings. Reformats: coronal and sagittal. F or radiation dose reduction, the following was used: automated exposure control, adjustment of mA and /or kV according to patient size. COMPARISON: CT 11/13/2023. 09/01/2018. FINDINGS: Image quality: Diagnostic. Lower chest: Stable calcified granuloma in the left lower lobe. Cardiomegaly. Liver: No solid mass. Gallbladder: Cholelithiasis without wall thickening. Biliary tree: No intrahepatic or extrahepatic dilation, accounting for age. Spleen: No splenomegaly. Pancreas: No pancreatic ductal dilation. Adrenals: No adrenal nodule. Kidneys and ureters: No hydronephrosis. No renal cystic lesion which requires follow up. No solid mas s. Stomach, bowel and peritoneum: No gastric or small bowel dilation. No abnormal wall thickening. No pa thologic free fluid. Colonic interposition between the liver and hemidiaphragm. Partially calcified a nd noncalcified peritoneal nodularity, unchanged from prior. Examples include: -Stable 1.3 cm nodule in the left upper quadrant (series 10, image 65). -Stable 2.0 cm nodule in the left lower quadrant (series 10, image 97). Lymph nodes: No central or retroperitoneal adenopathy. Vessels: No infrarenal aortic aneurysm. Patent portal vein. PELVIS Reproductive organs: Unremarkable. Bladder: No abnormal wall thickening, accounting for underdistention. Pelvic lymph nodes: No pelvic adenopathy by size criteria. Bones: No aggressive osseous abnormality. Degenerative changes of the spine. Other: No significant ventral or inguinal hernia. Bone island of the right posterior iliac bone by Ho unsfield units criteria. Right hip arthroplasty. Stable fluid within the left psoas musculature. IMPRESSION: Stable peritoneal nodules, presumably a sequela of intraperitoneal fat necrosis. Colonic interposition between the liver and hemidiaphragm, which can cause right upper quadrant pain. Reviewed by: David Osorio MD on 02/19/2024 12:13 PM PDT Approved by: David Osorio MD on 02/19/2024 12:13 PM PDT Station ID: [id number]
== END 2024-02-19 08:08 | disposition home or self-care (01) ==
LOC: DI 08:07
PROVIDERS: ATTEND Nurse Practitioner Family
DX: R19.00 Intra-abdominal and pelvic swelling, mass and lump, unspecified site (principal); R93.89 Abnormal findings on diagnostic imaging of other specified body structures; I10 Essential (primary) hypertension
CPT/HCPCS: 36415; 74177; 80048; Q9963; Q9967

== ENCOUNTER 2024-02-19 08:09 | Outpatient (CLI) | payer MEDICARE, OTHER ==
[2024-02-19 08:47] LABS: CALCIUM 9.5 mg/dL (8.5-10.3)
== END 2024-02-19 08:10 | disposition home or self-care (01) ==
LOC: LAB 08:09
PROVIDERS: ATTEND Nurse Practitioner Family
DX: I10 Essential (primary) hypertension (principal)
CPT/HCPCS: 36415; 80048